=== PATIENT | female | born 1970 | race American Indian/Alaskan Native ===

== ENCOUNTER 2019-05-26 17:55 | Inpatient (IN) | payer OTHER ==
--- NOTE | 2019-05-26 18:20 | Emergency Department Report ---
ED Altered Mental Status HPI - General Chief Complaint: Altered Mental Status Stated Complaint: CONFUSION Time Seen by Provider: 05/26/19 18:17 Source: EMS Mode of arrival: Stretcher Limitations: No Limitations - History of Present Illness Initial Comments: Vision is a 48-year-old female that presents from a local psychiatric facility for confusion. Patient was over at [facility] on a 1013 for suicidal ideations and the patient was noted to be confused just prior to arrival. Patient denies pain. Patient denies any physical complaints. Patient denies dysuria. Patient states she doesn't believe she is confused. MD Complaint: altered mental status, confusion -: Sudden Consistency of Symptoms: constant Associated Symptoms: denies other symptoms. denies: chest pain, cough, diaphoresis, fever/chills, headaches, loss of appetite, malaise, nause a/vomiting, rash, seizure, shortness of breath, syncope, weakness, foul smelling urine, difficulty walking, diarrhea, incontinence - Related Data Allergies Allergy/AdvReac Type Severity Reaction Status Date / Time No Known Allergies Allergy Unverified 05/26/19 18:30 ED Review of Systems ROS: Stated complaint: CONFUSION Other details as noted in HPI Constitutional: denies: chills, fever Eyes: denies: eye pain, eye discharge, vision change ENT: denies: ear pain, throat pain Respiratory: denies: cough, shortness of breath, wheezing Cardiovascular: denies: chest pain, palpitations Endocrine: no symptoms reported Gastrointestinal: denies: abdominal pain, nausea, diarrhea Genitourinary: denies: urgency, dysuria, discharge Musculoskeletal: denies: back pain, joint swelling, arthralgia Skin: denies: rash, lesions Neurological: confusion. denies: headache, weakness, paresthesias Psychiatric: denies: anxiety, depression Hematological/Lymphatic: denies: easy bleeding, easy bruising ED Past Medical Hx - Past Medical History Previous Medical History?: Yes Hx Hypertension: Yes Hx Diabetes: Yes - Surgical History Past Surgical History?: No - Family History Family history: no significant - Social History Smoking Status: Never Smoker Substance Use Type: None ED Physical Exam - General Limitations: No Limitations General appearance: alert, in no apparent distress - Head Head exam: Present: atraumatic, normocephalic - Eye Eye exam: Present: normal appearance, PERRL Pupils: Present: normal accommodation - ENT ENT exam: Present: mucous membranes moist - Neck Neck exam: Present: normal inspection - Respiratory Respiratory exam: Present: normal lung sounds bilaterally. Absent: respiratory distress - Cardiovascular Cardiovascular Exam: Present: regular rate, normal rhythm. Absent: systolic murmur, diastolic murmur, rubs, gallop - GI/Abdominal GI/Abdominal exam: Present: soft, normal bowel sounds - Extremities Exam Extremities exam: Present: normal inspection - Back Exam Back exam: Present: normal inspection - Neurological Exam Neurological exam: Present: alert, altered (patient is oriented 2. Patient is disoriented to time.) - Psychiatric Psychiatric exam: Present: normal affect, normal mood - Skin Skin exam: Present: warm, dry, intact, normal color. Absent: rash - Assessment Assessment Interval: Baseline - Level of Consciousness 1a. Level of Consciousness: alert/keenly responsive - LOC Questions 1b. LOC Questions: answers both correctly - LOC Command 1c. LOC Commands: performs tasks correctly - Best Gaze 2. Best Gaze: normal - Visual 3. Visual: no visual loss - Facial Palsy 4. Facial Palsy: normal symmetrical movement - Motor Arm 5a. Motor Arm Left: no drift 5b. Motor Arm Right: no drift - Motor Leg 6a. Motor Leg Left: no drift 6b. Motor Leg Right: no drift - Limb Ataxia 7. Limb Ataxia: absent - Sensory 8. Sensory: normal - Best Language 9. Best Language: no aphasia - Dysarthria 10. Dysarthria: normal - Extinction and Inattention 11. Extinction/Inattention: no abnormality - Scoring Total Score: 0 Stroke Severity: No Stroke Symptoms ED Course Vital Signs 05/26/19 05/26/19 05/26/19 18:05 18:06 18:13 Temperature 98.3 F Pulse Rate 93 H 94 H Respiratory 18 18 18 Rate Blood Pressure 116/72 Blood Pressure 116/72 [Left] O2 Sat by Pulse 99 99 99 Oximetry 05/26/19 05/26/19 05/26/19 19:31 19:45 20:01 Temperature Pulse Rate 76 95 H 80 Respiratory 13 16 12 Rate Blood Pressure 125/81 121/82 124/80 Blood Pressure [Left] O2 Sat by Pulse 99 99 99 Oximetry 05/26/19 05/26/19 05/26/19 20:15 20:31 20:45 Temperature Pulse Rate 82 85 85 Respiratory 12 11 L 14 Rate Blood Pressure 119/80 124/84 120/77 Blood Pressure [Left] O2 Sat by Pulse 100 97 Oximetry 05/26/19 21:00 Temperature Pulse Rate 85 Respiratory 16 Rate Blood Pressure 107/65 Blood Pressure [Left] O2 Sat by Pulse 95 Oximetry - Reevaluation(s) Reevaluation #1: Patient is still confused. I discussed results with patient. Patient will be admitted to the hospitalist service. 05/26/19 22:05 - Consultations Consultation #1: Hospitalist consultation for admission. Hospitalist to admit patient. 05/26/19 22:05 - Lab Data Result diagrams: 05/26/19 18:26 05/26/19 18:26 Lab Results 05/26/19 05/26/19 05/26/19 Range/Units 18:26 18:26 18:26 WBC 6.6 (4.5-11.0) K/mm3 RBC 3.62 L (3.65-5.03) M/mm3 Hgb 12.0 (10.1-14.3) gm/dl Hct 35.7 (30.3-42.9) % MCV 99 H (79-97) fl MCH 33 H (28-32) pg MCHC 34 (30-34) % RDW 13.6 (13.2-15.2) % Plt Count 248 (140-440) K/mm3 Lymph % (Auto) 46.2 H (13.4-35.0) % Starr % (Auto) 12.2 H (0.0-7.3) % Eos % (Auto) 1.8 (0.0-4.3) % Baso % (Auto) 1.1 (0.0-1.8) % Lymph # 3.0 (1.2-5.4) K/mm3 Starr # 0.8 (0.0-0.8) K/mm3 Eos # 0.1 (0.0-0.4) K/mm3 Baso # 0.1 (0.0-0.1) K/mm3 Seg Neutrophils % 38.7 L (40.0-70.0) % Seg Neutrophils # 2.5 (1.8-7.7) K/mm3 Sodium 139 (137-145) mmol/L Potassium 5.0 (3.6-5.0) mmol/L Chloride 103.2 (98-107) mmol/L Carbon Dioxide 24 (22-30) mmol/L Anion Gap 17 mmol/L BUN 17 (7-17) mg/dL Creatinine 0.7 (0.7-1.2) mg/dL Estimated GFR > 60 ml/min BUN/Creatinine Ratio 24 % Glucose 107 H (65-100) mg/dL Calcium 9.7 (8.4-10.2) mg/dL Total Bilirubin 0.30 (0.1-1.2) mg/dL AST 20 (5-40) units/L ALT 15 (7-56) units/L Alkaline Phosphatase 72 (35-129) units/L Ammonia 37.0 (25-60) umol/L Total Creatine Kinase 44 (30-135) units/L Total Protein 6.8 (6.3-8.2) g/dL Albumin 3.8 L (3.9-5) g/dL Albumin/Globulin Ratio 1.3 % Urine Color (Yellow) Urine Turbidity (Clear) Urine pH (5.0-7.0) Ur Specific [place] (1.003-1.030) Urine Protein (Negative) mg/dL Urine Glucose (UA) (Negative) mg/dL Urine Ketones (Negative) mg/dL Urine Blood (Negative) Urine Nitrite (Negative) Urine Bilirubin (Negative) Urine Urobilinogen (<2.0) mg/dL Ur Leukocyte Esterase (Negative) Urine WBC (Auto) (0.0-6.0) /HPF Urine RBC (Auto) (0.0-6.0) /HPF U Epithel Cells (Auto) (0-13.0) /HPF Urine Bacteria (Auto) (Negative) /HPF Urine Mucus /HPF Salicylates (2.8-20.0) mg/dL Urine Opiates Screen Urine Methadone Screen Acetaminophen (10.0-30.0) ug/mL Ur Barbiturates Screen Ur Phencyclidine Scrn Ur Amphetamines Screen U Benzodiazepines Scrn Urine Cocaine Screen U Marijuana (THC) Screen Drugs of Abuse Note Plasma/Serum Alcohol (0-0.07) % 05/26/19 05/26/19 05/26/19 Range/Units 18:26 18:26 18:26 WBC (4.5-11.0) K/mm3 RBC (3.65-5.03) M/mm3 Hgb (10.1-14.3) gm/dl Hct (30.3-42.9) % MCV (79-97) fl MCH (28-32) pg MCHC (30-34) % RDW (13.2-15.2) % Plt Count (140-440) K/mm3 Lymph % (Auto) (13.4-35.0) % Starr % (Auto) (0.0-7.3) % Eos % (Auto) (0.0-4.3) % Baso % (Auto) (0.0-1.8) % Lymph # (1.2-5.4) K/mm3 Starr # (0.0-0.8) K/mm3 Eos # (0.0-0.4) K/mm3 Baso # (0.0-0.1) K/mm3 Seg Neutrophils % (40.0-70.0) % Seg Neutrophils # (1.8-7.7) K/mm3 Sodium (137-145) mmol/L Potassium (3.6-5.0) mmol/L Chloride (98-107) mmol/L Carbon Dioxide (22-30) mmol/L Anion Gap mmol/L BUN (7-17) mg/dL Creatinine (0.7-1.2) mg/dL Estimated GFR ml/min BUN/Creatinine Ratio % Glucose (65-100) mg/dL Calcium (8.4-10.2) mg/dL Total Bilirubin (0.1-1.2) mg/dL AST (5-40) units/L ALT (7-56) units/L Alkaline Phosphatase (35-129) units/L Ammonia (25-60) umol/L Total Creatine Kinase (30-135) units/L Total Protein (6.3-8.2) g/dL Albumin (3.9-5) g/dL Albumin/Globulin Ratio % Urine Color (Yellow) Urine Turbidity (Clear) Urine pH (5.0-7.0) Ur Specific [place] (1.003-1.030) Urine Protein (Negative) mg/dL Urine Glucose (UA) (Negative) mg/dL Urine Ketones (Negative) mg/dL Urine Blood (Negative) Urine Nitrite (Negative) Urine Bilirubin (Negative) Urine Urobilinogen (<2.0) mg/dL Ur Leukocyte Esterase (Negative) Urine WBC (Auto) (0.0-6.0) /HPF Urine RBC (Auto) (0.0-6.0) /HPF U Epithel Cells (Auto) (0-13.0) /HPF Urine Bacteria (Auto) (Negative) /HPF Urine Mucus /HPF Salicylates < 0.3 L (2.8-20.0) mg/dL Urine Opiates Screen Urine Methadone Screen Acetaminophen < 5.0 L (10.0-30.0) ug/mL Ur Barbiturates Screen Ur Phencyclidine Scrn Ur Amphetamines Screen U Benzodiazepines Scrn Urine Cocaine Screen U Marijuana (THC) Screen Drugs of Abuse Note Plasma/Serum Alcohol < 0.01 (0-0.07) % 05/26/19 05/26/19 Range/Units 18:46 18:46 WBC (4.5-11.0) K/mm3 RBC (3.65-5.03) M/mm3 Hgb (10.1-14.3) gm/dl Hct (30.3-42.9) % MCV (79-97) fl MCH (28-32) pg MCHC (30-34) % RDW (13.2-15.2) % Plt Count (140-440) K/mm3 Lymph % (Auto) (13.4-35.0) % Starr % (Auto) (0.0-7.3) % Eos % (Auto) (0.0-4.3) % Baso % (Auto) (0.0-1.8) % Lymph # (1.2-5.4) K/mm3 Starr # (0.0-0.8) K/mm3 Eos # (0.0-0.4) K/mm3 Baso # (0.0-0.1) K/mm3 Seg Neutrophils % (40.0-70.0) % Seg Neutrophils # (1.8-7.7) K/mm3 Sodium (137-145) mmol/L Potassium (3.6-5.0) mmol/L Chloride (98-107) mmol/L Carbon Dioxide (22-30) mmol/L Anion Gap mmol/L BUN (7-17) mg/dL Creatinine (0.7-1.2) mg/dL Estimated GFR ml/min BUN/Creatinine Ratio % Glucose (65-100) mg/dL Calcium (8.4-10.2) mg/dL Total Bilirubin (0.1-1.2) mg/dL AST (5-40) units/L ALT (7-56) units/L Alkaline Phosphatase (35-129) units/L Ammonia (25-60) umol/L Total Creatine Kinase (30-135) units/L Total Protein (6.3-8.2) g/dL Albumin (3.9-5) g/dL Albumin/Globulin Ratio % Urine Color Yellow (Yellow) Urine Turbidity Slightly-cloudy (Clear) Urine pH 6.0 (5.0-7.0) Ur Specific [place] 1.020 (1.003-1.030) Urine Protein <15 mg/dl (Negative) mg/dL Urine Glucose (UA) Neg (Negative) mg/dL Urine Ketones Neg (Negative) mg/dL Urine Blood Neg (Negative) Urine Nitrite Neg (Negative) Urine Bilirubin Neg (Negative) Urine Urobilinogen < 2.0 (<2.0) mg/dL Ur Leukocyte Esterase Lg (Negative) Urine WBC (Auto) 33.0 H (0.0-6.0) /HPF Urine RBC (Auto) 30.0 (0.0-6.0) /HPF U Epithel Cells (Auto) 12.0 (0-13.0) /HPF Urine Bacteria (Auto) 1+ (Negative) /HPF Urine Mucus Few /HPF Salicylates (2.8-20.0) mg/dL Urine Opiates Screen Presumptive negative Urine Methadone Screen Presumptive negative Acetaminophen (10.0-30.0) ug/mL Ur Barbiturates Screen Presumptive negative Ur Phencyclidine Scrn Presumptive negative Ur Amphetamines Screen Presumptive negative U Benzodiazepines Scrn Presumptive negative Urine Cocaine Screen Presumptive negative U Marijuana (THC) Screen Presumptive negative Drugs of Abuse Note Disclamer Plasma/Serum Alcohol (0-0.07) % - EKG Data -: EKG Interpreted by Ak EKG shows normal: sinus rhythm, axis, intervals, QRS complexes, ST-T waves Rate: normal - Radiology Data Radiology results: report reviewed NONENHANCED CT SCAN OF THE BRAIN: INDICATION: Altered Mental Status. TECHNIQUE: Routine CT head without contrast. Sagittal and coronal reformatted images were obtained. All CT scans at this location are performed using CT dose reduction for ALARA by means of automated exposure control. COMPARISON: None. FINDINGS: BRAIN / INTRACRANIAL CONTENTS: No acute hemorrhage, mass effect, midline shift, hydrocephalus, or acute, large territorial infarct. Extracerebral space is seen bifrontally symmetrically with prominent interhemispheric fissure. This is due to involution. Extra cerebellar space is also seen bilaterally symmetrically. No significant white matter abnormality. CRANIOCERVICAL JUNCTION: Mild tonsillar ectopia is seen. Cervicomedullary junction is not compromised. ORBITS: Bony remodeling is seen along the medial wall of the left orbit. Though the this appears to be from old healed trauma, this could also be congenital. SINUSES / MASTOIDS: No significant abnormality of the visualized paranasal sinuses or mastoid air cells. ADDITIONAL FINDINGS: None. IMPRESSION: I do not see an acute parenchymal lesion in the brain. Critical Care Time: Yes Critical care attestation.: If time is entered above; I have spent that time in minutes in the direct care of this critically ill patient, excluding procedure time. Critical Care Time: 35 minutes ED Disposition Clinical Impression: Encephalopathy acute, Confusion Altered mental state Qualifiers: Altered mental status type: unspecified Qualified Code(s): R41.82 - Altered men alexandro status, unspecified UTI (urinary tract infection) Qualifiers: Urinary tract infection type: acute cystitis Hematuria presence: with hematuria Qualified Code(s): N30.01 - Acute cystitis with hematuria Disposition: OP ADMIT IP TO THIS HOSP Is pt being admited?: Yes Does the pt Need Aspirin: No Condition: Critical Time of Disposition: 22:07
[2019-05-26 18:42] LABS: Basophils # (Auto) 0.1 K/mm3 (0.0-0.1); Basophils % (Auto) 1.1 % (0.0-1.8); Eosinophils # (Auto) 0.1 K/mm3 (0.0-0.4); Eosinophils % (Auto) 1.8 % (0.0-4.3); Hematocrit 35.7 % (30.3-42.9); Lymphocytes % (Auto) 46.2 % (13.4-35.0); Mean Corpuscular HGB Conc 34 % (30-34); Mean Corpuscular Volume 99 fl (79-97); Monocytes # (Auto) 0.8 K/mm3 (0.0-0.8); Monocytes % (Auto) 12.2 % (0.0-7.3); Platelet Count 248 K/mm3 (140-440); Red Blood Count 3.62 M/mm3 (3.65-5.03); Red Cell Distribution Width 13.6 % (13.2-15.2)
[2019-05-26 19:28] LABS: Bacteria,Urine 1+ /HPF (Negative); Bilirubin,Urine NEG (Negative); Blood,Urine NEG (Negative); Color,Urine Yellow (Yellow); Mucus,Urine FEW /HPF; Protein,Urine <15 mg/dL mg/dL (Negative); Urobilinogen,Urine < 2.0 mg/dL (<2.0)
[2019-05-26 19:44] LABS: Amphetamine Screen,Urine PRESUMPTIVE NEGATIVE; Benzodiazepines Screen,Urine PRESUMPTIVE NEGATIVE; Cannabinoid Screen,Urine PRESUMPTIVE NEGATIVE; Cocaine Screen,Urine PRESUMPTIVE NEGATIVE; Methadone Screen,Urine PRESUMPTIVE NEGATIVE; Opiate Screen,Urine PRESUMPTIVE NEGATIVE
[2019-05-26 19:49] LABS: Alanine Aminotransferase 15 units/L (7-56); Albumin 3.8 g/dL (3.9-5); BUN/Creatinine Ratio 24; Blood Urea Nitrogen 17 mg/dL (7-17); Calcium 9.7 mg/dL (8.4-10.2); Hemolysis Index 19
--- NOTE | 2019-05-26 21:58 | Cat Scan Report ---
NONENHANCED CT SCAN OF THE BRAIN: INDICATION: Altered Mental Status. TECHNIQUE: Routine CT head without contrast. Sagittal and coronal reformatted images were obtained. A ll CT scans at this location are performed using CT dose reduction for ALARA by means of automated ex posure control. COMPARISON: None. FINDINGS: BRAIN / INTRACRANIAL CONTENTS: No acute hemorrhage, mass effect, midline shift, hydrocephalus, or acu te, large territorial infarct. Extracerebral space is seen bifrontally symmetrically with prominent i nterhemispheric fissure. This is due to involution. Extra cerebellar space is also seen bilaterally s ymmetrically. No significant white matter abnormality. CRANIOCERVICAL JUNCTION: Mild tonsillar ectopia is seen. Cervicomedullary junction is not compromised . ORBITS: Bony remodeling is seen along the medial wall of the left orbit. Though the this appears to b e from old healed trauma, this could also be congenital. SINUSES / MASTOIDS: No significant abnormality of the visualized paranasal sinuses or mastoid air millie ls. ADDITIONAL FINDINGS: None. IMPRESSION: I do not see an acute parenchymal lesion in the brain. Signer Name: Evangelista Keller MD Signed: 05/26/2019 9:53 PM Workstation Name: [id number]
[2019-05-26] MEDS ORDERED: MAXIPIME/NS 2 GM/100 ML 2 GM/100 ML BAG IV ONE (22:04)
[2019-05-26] MEDS ORDERED: NACL 0.9% 1000 ML 1,000 ML IV ONE (22:05)
[2019-05-26] MEDS ORDERED: SODIUM CHLORIDE FLUSH SYRINGE 10 ML IV PRN (23:31)
[2019-05-26] MEDS ORDERED: TYLENOL PO PRN (23:31)
[2019-05-26] MEDS ORDERED: MILK OF MAGNESIA PO PRN (23:31)
[2019-05-26] MEDS ORDERED: ZOFRAN IV PRN (23:31)
[2019-05-27] MEDS ORDERED: PEPCID IV ONE (00:07)
[2019-05-27] MEDS: PEPCID IV SCH ×3 (00:09→22:28)
--- NOTE | 2019-05-27 00:41 | History and Physical Report ---
<ANGELICA PRETTY - Last Filed: 05/27/19 00:29> History of Present Illness Date of examination: 05/27/19 Date of admission: 05/26/19 23:01 Chief complaint: AMS, confusion History of present illness: Pt is a 48-year-old female with PMHx of HTN, Depression who was brought to the ER from a mental facility for c/o confusion. Patient was admitted at [place] (psych facility) for depression and suicidal ideations, she was on 1013. Pt was sent to the [facility] ER for confusion and changed in mental status. In the ER, pt had a UA that was positive for UTI. Pt was A&O x 3, she was noted to have some confusion with the time of the day, she otherwise able to answer questions appropriately, she denies any back pain, denies dysuria, denies pain in micturation, denies fever, denies chills. A CT scan of the brain was negative for any acute lesions, she was started on antibiotic an admitted for further evaluation and treatment. Past History Past Medical History: diabetes, hypertension, other (depression) Past Surgical History: No surgical history Social history: no significant social history Family history: no significant family history Medications and Allergies Allergies Allergy/AdvReac Type Severity Reaction Status Date / Time No Known Allergies Allergy Unverified 05/26/19 18:30 Home Medications Medication Instructions Recorded Confirmed Last Taken Type Amlodipine Besylate [Norvasc] 5 mg PO DAILY 05/26/19 05/26/19 Unknown History Folic Acid [Folvite] 1 tab PO DAILY 05/26/19 05/26/19 Unknown History Active Meds: Active Medications Acetaminophen (Tylenol) 650 mg PO Q4H PRN PRN Reason: Pain MILD(1-3)/Fever >100.5/VILA Enoxaparin Sodium (Lovenox) 40 mg SUB-Q QDAY [facility] Famotidine (Pepcid) 20 mg IV BID [facility] Last Admin: 05/27/19 00:09 Dose: 20 mg Documented by: Sodium Chloride (Nacl 0.9% 1000 Ml) 1,000 mls @ 100 mls/hr IV DIRECT [facility] Magnesium Hydroxide (Milk Of Magnesia) 30 ml PO Q4H PRN PRN Reason: Constipation Ondansetron HCl (Zofran) 4 mg IV Q8H PRN PRN Reason: Nausea And Vomiting Sodium Chloride (Sodium Chloride Flush Syringe 10 Ml) 10 ml IV BID [facility] Sodium Chloride (Sodium Chloride Flush Syringe 10 Ml) 10 ml IV PRN PRN PRN Reason: LINE FLUSH Review of Systems Neurological: confusion Exam - Constitutional Vitals: Temp Pulse Resp BP Pulse Ox 98.1 F 91 H 11 L 126/85 100 05/26/19 23:05 05/26/19 23:31 05/26/19 23:31 05/26/19 23:31 05/26/19 23:31 General appearance: Present: no acute distress - EENT Eyes: Present: EOM intact ENT: hearing intact - Neck Neck: Present: supple - Respiratory Respiratory effort: normal Respiratory: bilateral: CTA - Cardiovascular Rhythm: regular Heart Sounds: Present: S1 & S2 - Extremities Extremities: no ischemia, No edema Peripheral Pulses: within normal limits - Abdominal General gastrointestinal: Present: non-tender, non-distended Female genitourinary: Present: deferred - Rectal Rectal Exam: deferred - Integumentary Integumentary: Present: warm, dry - Musculoskeletal Musculoskeletal: strength equal bilaterally - Psychiatric Psychiatric: cooperative - Neurologic Neurologic: moves all extremities Results - Labs CBC & Chem 7: 05/26/19 18:26 05/26/19 18:26 Labs: Laboratory Last Values WBC 6.6 K/mm3 (4.5-11.0) 05/26/19 18:26 RBC 3.62 M/mm3 (3.65-5.03) L 05/26/19 18:26 Hgb 12.0 gm/dl (10.1-14.3) 05/26/19 18:26 Hct 35.7 % (30.3-42.9) 05/26/19 18:26 MCV 99 fl (79-97) H 05/26/19 18:26 MCH 33 pg (28-32) H 05/26/19 18:26 MCHC 34 % (30-34) 05/26/19 18:26 RDW 13.6 % (13.2-15.2) 05/26/19 18:26 Plt Count 248 K/mm3 (140-440) 05/26/19 18:26 Lymph % (Auto) 46.2 % (13.4-35.0) H 05/26/19 18:26 [place] % (Auto) 12.2 % (0.0-7.3) H 05/26/19 18:26 Eos % (Auto) 1.8 % (0.0-4.3) 05/26/19 18:26 Baso % (Auto) 1.1 % (0.0-1.8) 05/26/19 18:26 Lymph # 3.0 K/mm3 (1.2-5.4) 05/26/19 18:26 [place] # 0.8 K/mm3 (0.0-0.8) 05/26/19 18:26 Eos # 0.1 K/mm3 (0.0-0.4) 05/26/19 18:26 Baso # 0.1 K/mm3 (0.0-0.1) 05/26/19 18:26 Seg Neutrophils % 38.7 % (40.0-70.0) L 05/26/19 18: Seg Neutrophils # 2.5 K/mm3 (1.8-7.7) 05/26/19 18:26 Sodium 139 mmol/L (137-145) 05/26/19 18:26 Potassium 5.0 mmol/L (3.6-5.0) 05/26/19 18:26 Chloride 103.2 mmol/L (98-107) 05/26/19 18:26 Carbon Dioxide 24 mmol/L (22-30) 05/26/19 18:26 17 mmol/L 05/26/19 18:26 BUN 17 mg/dL (7-17) 05/26/19 18:26 0.7 mg/dL (0.7-1.2) 05/26/19 18:26 Estimated GFR > 60 ml/min 05/26/19 18:26 24 % 05/26/19 18:26 Glucose 107 mg/dL (65-100) H 05/26/19 18:26 Calcium 9.7 mg/dL (8.4-10.2) 05/26/19 18:26 0.30 mg/dL (0.1-1.2) 05/26/19 18:26 AST 20 units/L (5-40) 05/26/19 18:26 ALT 15 units/L (7-56) 05/26/19 18:26 72 units/L (35-129) 05/26/19 18:26 37.0 umol/L (25-60) 05/26/19 18:26 44 units/L (30-135) 05/26/19 18:26 6.8 g/dL (6.3-8.2) 05/26/19 18:26 3.8 g/dL (3.9-5) L 05/26/19 18:26 1.3 % 05/26/19 18:26 Yellow (Yellow) 05/26/19 18:46 Slightly-cloudy (Clear) 05/26/19 18:46 6.0 (5.0-7.0) 05/26/19 18:46 Ur Specific [place] 1.020 (1.003-1.030) 05/26/19 18:46 <15 mg/dl mg/dL (Negative) 05/26/19 18:46 Neg mg/dL (Negative) 05/26/19 18:46 Neg mg/dL (Negative) 05/26/19 18:46 Neg (Negative) 05/26/19 18:46 Neg (Negative) 05/26/19 18:46 Neg (Negative) 05/26/19 18:46 < 2.0 mg/dL (<2.0) 05/26/19 18:46 Ur Leukocyte Esterase Lg (Negative) 05/26/19 18:46 33.0 /HPF (0.0-6.0) H 05/26/19 18:46 30.0 /HPF (0.0-6.0) 05/26/19 18:46 U Epithel Cells (Auto) 12.0 /HPF (0-13.0) 05/26/19 18:46 1+ /HPF (Negative) 05/26/19 18:46 Few /HPF 05/26/19 18:46 Salicylates < 0.3 mg/dL (2.8-20.0) L 05/26/19 18:26 Presumptive negative 05/26/19 18:46 Presumptive negative 05/26/19 18:46 Acetaminophen < 5.0 ug/mL (10.0-30.0) L 05/26/19 18:26 Ur Barbiturates Screen Presumptive negative 05/26/19 18:46 Ur Phencyclidine Scrn Presumptive negative 08/23/19 18:46 Ur Amphetamines Screen Presumptive negative 05/26/19 18:46 U Benzodiazepines Scrn Presumptive negative 05/26/19 18:46 Presumptive negative 05/26/19 18:46 U Marijuana (THC) Screen Presumptive negative 05/26/19 18:46 Disclamer 05/26/19 18:46 Plasma/Serum Alcohol < 0.01 % (0-0.07) 05/26/19 18:26 Assessment and Plan Assessment and plan: 1. AMS/Confusion (possibly due to delirium) 2. Acute UTI 3. H/o Depression with suicidal Isolation 4. DM thpe 2 (Controlled) 5. HTM (BP stable) Plan: Admit to med/surg IVF for hydration Continue IV antibiotic Resume home meds 1013 for completed 1-1 observation for h/o suicidal ideation Regular insulin per sliding scale DVT prophylaxis with Lovenox Advance Directives: Yes VTE prophylaxis?: Chemical Plan of care discussed with patient/family: Yes <BARRIE RAMIREZ - Last Filed: 05/27/19 04:13> History of Present Illness Date of admission: 05/26/19 23:01 Medications and Allergies Active Meds: Active Medications Acetaminophen (Tylenol) 650 mg PO Q4H PRN PRN Reason: Pain MILD(1-3)/Fever >100.5/VILA Dextrose (D50w (25gm) Syringe) 50 ml IV PRN PRN PRN Reason: Hypoglycemia Enoxaparin Sodium (Lovenox) 40 mg SUB-Q QDAY [facility] Famotidine (Pepcid) 20 mg IV BID [facility] Last Admin: 05/27/19 00:09 Dose: 20 mg Documented by: Sodium Chloride (Nacl 0.9% 1000 Ml) 1,000 mls @ 100 mls/hr IV DIRECT [facility] Last Admin: 05/27/19 02:00 Dose: 100 mls/hr Documented by: Ceftriaxone Sodium (Rocephin/Ns 1 Gm/50 Ml) 1 gm in 50 mls @ 100 mls/hr IV Q24HR [facility]; Protocol Insulin Glargine (Lantus) 10 units SUB-Q QHS [facility] Insulin Human Lispro (Humalog) 0 unit SUB-Q ACHS [facility]; Protocol Magnesium Hydroxide (Milk Of Magnesia) 30 ml PO Q4H PRN PRN Reason: Constipation Ondansetron HCl (Zofran) 4 mg IV Q8H PRN PRN Reason: Nausea And Vomiting Sodium Chloride (Sodium Chloride Flush Syringe 10 Ml) 10 ml IV BID [facility] Sodium Chloride (Sodium Chloride Flush Syringe 10 Ml) 10 ml IV PRN PRN PRN Reason: LINE FLUSH Last Admin: 05/27/19 02:01 Dose: 10 ml Documented by: Exam - Constitutional Vitals: Temp Pulse Resp BP Pulse Ox 97.7 F 75 18 142/92 99 05/27/19 01:45 05/27/19 01:45 05/27/19 01:45 05/27/19 01:45 05/27/19 01:45 Results - Labs CBC & Chem 7: 05/26/19 18:26 05/26/19 18:26 Labs: Laboratory Last Values WBC 6.6 K/mm3 (4.5-11.0) 05/26/19 18:26 RBC 3.62 M/mm3 (3.65-5.03) L 05/26/19 18:26 Hgb 12.0 gm/dl (10.1-14.3) 05/26/19 18:26 Hct 35.7 % (30.3-42.9) 05/26/19 18:26 MCV 99 fl (79-97) H 05/26/19 18:26 MCH 33 pg (28-32) H 05/26/19 18:26 MCHC 34 % (30-34) 05/26/19 18:26 RDW 13.6 % (13.2-15.2) 05/26/19 18:26 Plt Count 248 K/mm3 (140-440) 05/26/19 18:26 Lymph % (Auto) 46.2 % (13.4-35.0) H 05/26/19 18:26 [place] % (Auto) 12.2 % (0.0-7.3) H 05/26/19 18:26 Eos % (Auto) 1.8 % (0.0-4.3) 05/26/19 18:26 Baso % (Auto) 1.1 % (0.0-1.8) 05/26/19 18:26 Lymph # 3.0 K/mm3 (1.2-5.4) 05/26/19 18:26 [place] # 0.8 K/mm3 (0.0-0.8) 05/26/19 18:26 Eos # 0.1 K/mm3 (0.0-0.4) 05/26/19 18:26 Baso # 0.1 K/mm3 (0.0-0.1) 05/26/19 18:26 Seg Neutrophils % 38.7 % (40.0-70.0) L 05/26/19 18:26 Seg Neutrophils # 2.5 K/mm3 (1.8-7.7) 05/26/19 18:26 Sodium 139 mmol/L (137-145) 05/26/19 18:26 Potassium 5.0 mmol/L (3.6-5.0) 05/26/19 18:26 Chloride 103.2 mmol/L (98-107) 05/26/19 18:26 Carbon Dioxide 24 mmol/L (22-30) 05/26/19 18:26 17 mmol/L 05/26/19 18:26 BUN 17 mg/dL (7-17) 05/26/19 18:26 0.7 mg/dL (0.7-1.2) 05/26/19 18:26 Estimated GFR > 60 ml/min 05/26/19 18:26 24 % 05/26/19 18:26 Glucose 107 mg/dL (65-100) H 05/26/19 18:26 Calcium 9.7 mg/dL (8.4-10.2) 05/26/19 18:26 0.30 mg/dL (0.1-1.2) 05/26/19 18:26 AST 20 units/L (5-40) 05/26/19 18:26 ALT 15 units/L (7-56) 05/26/19 18:26 72 units/L (35-129) 05/26/19 18:26 37.0 umol/L (25-60) 05/26/19 18:26 44 units/L (30-135) 05/26/19 18:26 6.8 g/dL (6.3-8.2) 05/26/19 18:26 3.8 g/dL (3.9-5) L 05/26/19 18:26 1.3 % 05/26/19 18:26 Yellow (Yellow) 05/26/19 18:46 Slightly-cloudy (Clear) 05/26/19 18:46 6.0 (5.0-7.0) 05/26/19 18:46 Ur Specific [place] 1.020 (1.003-1.030) 05/26/19 18:46 <15 mg/dl mg/dL (Negative) 05/26/19 18:46 Neg mg/dL (Negative) 05/26/19 18:46 Neg mg/dL (Negative) 05/26/19 18:46 Neg (Negative) 05/26/19 18:46 Neg (Negative) 05/26/19 18:46 Neg (Negative) 05/26/19 18:46 < 2.0 mg/dL (<2.0) 05/26/19 18:46 Ur Leukocyte Esterase Lg (Negative) 05/26/19 18:46 33.0 /HPF (0.0-6.0) H 05/26/19 18:46 30.0 /HPF (0.0-6.0) 05/26/19 18:46 U Epithel Cells (Auto) 12.0 /HPF (0-13.0) 05/26/19 18:46 1+ /HPF (Negative) 05/26/19 18:46 Few /HPF 05/26/19 18:46 Salicylates < 0.3 mg/dL (2.8-20.0) L 05/26/19 18:26 Presumptive negative 05/26/19 18:46 Presumptive negative 05/26/19 18:46 Acetaminophen < 5.0 ug/mL (10.0-30.0) L 05/26/19 18:26 Ur Barbiturates Screen Presumptive negative 05/26/19 18:46 Ur Phencyclidine Scrn Presumptive negative 05/26/19 18:46 Ur Amphetamines Screen Presumptive negative 05/26/19 18:46 U Benzodiazepines Scrn Presumptive negative 05/26/19 18:46 Presumptive negative 05/26/19 18:46 U Marijuana (THC) Screen Presumptive negative 05/26/19 18:46 Disclamer 05/26/19 18:46 Plasma/Serum Alcohol < 0.01 % (0-0.07) 05/26/19 18:26 Assessment and Plan Assessment and plan: 48-year-old lady with a history of depression, hypertension, diabetes was sent to the emergency room for evaluation for confusion, found to have a urinary tract infection. She is on 1812 for suicide ideation,agree with plan as stated above
[2019-05-27] MEDS ORDERED: D50W (25GM) Syringe IV PRN (01:03)
[2019-05-27] MEDS: NACL 0.9% 1000 ML 1,000 ML IV SCH (02:00)
[2019-05-27 07:15] LABS: Hematocrit 34.4 % (30.3-42.9); Hemoglobin 11.5 gm/dl (10.1-14.3); Mean Corpuscular HGB Conc 33 % (30-34); Mean Corpuscular Volume 98 fl (79-97); Platelet Count 232 K/mm3 (140-440); Red Cell Distribution Width 13.6 % (13.2-15.2)
[2019-05-27 07:41] LABS: BUN/Creatinine Ratio 22; Blood Urea Nitrogen 11 mg/dL (7-17); Hemolysis Index 3
[2019-05-27] MEDS: HumaLOG SUB-Q SCH ×4 (08:20→21:57)
[2019-05-27] MEDS: LOVENOX SUB-Q SCH (10:37)
[2019-05-27] MEDS: ROCEPHIN/NS 1 GM/50 ML 1 GM/50 ML BAG IV SCH (10:37)
[2019-05-27 10:38] LABS: Total Cells Counted 100
[2019-05-27] MEDS: SODIUM CHLORIDE FLUSH SYRINGE 10 ML IV SCH ×2 (10:38→22:28)
[2019-05-27 10:39] LABS: Anisocytosis 1+; Basophils % (Manual) 0 % (0.0-1.8); Eosinophils % (Manual) 0 % (0.0-4.3)
--- NOTE | 2019-05-27 13:50 | Event Note ---
Date: 05/27/19 Patient reevaluated On 1013 for suicidal ideation UTI AMS Stable
[2019-05-27] MEDS: ATIVAN IV PRN ×2 (16:19→21:46)
[2019-05-27] MEDS: HABITROL TD SCH ×2 (16:21→18:17)
[2019-05-27] MEDS ORDERED: GEODON IM ONE ×2 (18:00→22:20)
[2019-05-27] MEDS ORDERED: LANTUS SUB-Q SCH (22:00)
[2019-05-28] MEDS: NACL 0.9% 1000 ML 1,000 ML IV SCH ×4 (00:38→20:11)
[2019-05-28] MEDS: ATIVAN IV PRN ×4 (07:14→20:10)
[2019-05-28] MEDS: HumaLOG SUB-Q SCH ×4 (08:04→22:59)
[2019-05-28] MEDS: ROCEPHIN/NS 1 GM/50 ML 1 GM/50 ML BAG IV SCH (09:45)
[2019-05-28] MEDS: PEPCID IV SCH ×2 (09:46→22:59)
[2019-05-28] MEDS: HABITROL TD SCH (09:46)
[2019-05-28] MEDS: LOVENOX SUB-Q SCH (09:46)
[2019-05-28] MEDS: SODIUM CHLORIDE FLUSH SYRINGE 10 ML IV SCH ×2 (09:48→22:59)
--- NOTE | 2019-05-28 11:30 | Progress Note ---
Assessment and Plan Assessment and plan: Pt is a 48-year-old female with PMHx of HTN, Depression who was brought to the ER from a mental facility for c/o confusion. Patient was admitted at [place] (psych facility) for depression and suicidal ideations, she was on 1013. Pt was sent to the [facility] ER for confusion and changed in mental status. In the ER, pt had a UA that was positive for UTI. Pt was A&O x 3, she was noted to have some confusion with the time of the day, Past History Past Medical History: diabetes, hypertension, other (depression) CTH neg UA has 33 wbc, UDS neg, other labs wnl SI cont 1013, MH consult UTI cont abx, fup abx Acute metabolic encephalopathy likely due to UTI, improving dvt ppx- lovenox History Interval history: per nursing she has been confused, attempting to leave the floor no cp, no vomiting, no sob, no fever, no seizures Hospitalist Physical - Physical exam Narrative exam: General.: Appears well, no distress, nontoxic HEENT: Moist mucous membranes, extraocular muscles intact, no lymphadenopathy Neck: supple Cardiac: S1-S2 heard Lungs: clear to auscultation bilaterally Abdomen: soft , nontender, nondistended, bowel sounds positive Extremities: no edema clubbing or cyanosis Skin: no rash or lesions Neurologic: no gross focal deficits, confused, oriented to person and year, not to place and not to month or day Psych: calm, and cooperative - Constitutional Vitals: Temp Pulse Resp BP Pulse Ox 97.8 F 89 18 146/90 98 05/28/19 11:27 05/28/19 11:27 05/28/19 11:27 05/28/19 11:27 05/27/19 23:56 General appearance: Present: no acute distress Results - Labs CBC & Chem 7: 05/27/19 06:37 05/27/19 06:37 Labs: Laboratory Last Values WBC 4.8 K/mm3 (4.5-11.0) 05/27/19 06:37 RBC 3.50 M/mm3 (3.65-5.03) L 05/27/19 06:37 Hgb 11.5 gm/dl (10.1-14.3) 05/27/19 06:37 Hct 34.4 % (30.3-42.9) 05/27/19 06:37 MCV 98 fl (79-97) H 05/27/19 06:37 MCH 33 pg (28-32) H 05/27/19 06:37 MCHC 33 % (30-34) 05/27/19 06:37 RDW 13.6 % (13.2-15.2) 05/27/19 06:37 Plt Count 232 K/mm3 (140-440) 05/27/19 06:37 Lymph % (Auto) 46.2 % (13.4-35.0) H 05/26/19 18:26 [place] % (Auto) 12.2 % (0.0-7.3) H 05/26/19 18:26 Eos % (Auto) 1.8 % (0.0-4.3) 05/26/19 18:26 Baso % (Auto) 1.1 % (0.0-1.8) 05/26/19 18: Lymph # 3.0 K/mm3 (1.2-5.4) 05/26/19 18: [place] # 0.8 K/mm3 (0.0-0.8) 05/26/19 18:26 Eos # 0.1 K/mm3 (0.0-0.4) 05/26/19 18:26 Baso # 0.1 K/mm3 (0.0-0.1) 05/26/19 18:26 Add Manual Diff Complete 05/27/19 06:37 Total Counted 100 05/27/19 06:37 Seg Neutrophils % Bullet Swaging Machine Adjuster 05/27/19 06:37 Seg Neuts % (Manual) 42.0 % (40.0-70.0) 05/27/19 06:37 1.0 % 05/27/19 06:37 44.0 % (13.4-35.0) H 05/27/19 06:37 Reactive Lymphs % (Man) 0 % 05/27/19 06:37 13.0 % (0.0-7.3) H 05/27/19 06:37 0 % (0.0-4.3) 05/27/19 06:37 0 % (0.0-1.8) 05/27/19 06:37 0 % 05/27/19 06:37 0 % 05/27/19 06:37 0 % 05/27/19 06:37 0 % 05/27/19 06:37 Nucleated RBC % Not Reportable 05/27/19 06:37 Seg Neutrophils # 2.5 K/mm3 (1.8-7.7) 05/26/19 18:26 Seg Neutrophils # Man 2.0 K/mm3 (1.8-7.7) 05/27/19 06:37 Band Neutrophils # 0.0 K/mm3 05/27/19 06:37 2.1 K/mm3 (1.2-5.4) 05/27/19 06:37 Abs React Lymphs (Man) 0.0 K/mm3 05/27/19 06:37 0.6 K/mm3 (0.0-0.8) 05/27/19 06:37 0.0 K/mm3 (0.0-0.4) 05/27/19 06:37 0.0 K/mm3 (0.0-0.1) 05/27/19 06:37 0.0 K/mm3 05/27/19 06:37 0.0 K/mm3 05/27/19 06:37 0.0 K/mm3 05/27/19 06:37 Blast Cells # 0.0 K/mm3 05/27/19 06:37 WBC Morphology Not Reportable 05/27/19 06:37 Hypersegmented Neuts Not Reportable 05/27/19 06:37 Hyposegmented Neuts Not Reportable 05/27/19 06:37 Hypogranular Neuts Not Reportable 05/27/19 06:37 Not Reportable 05/27/19 06:37 Not Reportable 05/27/19 06:37 Not Reportable 05/27/19 06:37 Not Reportable 05/27/19 06:37 Not Reportable 05/27/19 06:37 Not Reportable 05/27/19 06:37 Not Reportable 05/27/19 06:37 Not Reportable 05/27/19 06:37 Plt Clumps, EDTA Not Reportable 05/27/19 06:37 Not Reportable 05/27/19 06:37 Not Reportable 05/27/19 06:37 Not Reportable 05/27/19 06:37 Plt Morphology Comment Not Reportable 05/27/19 06:37 RBC Morphology Not Reportable 05/27/19 06:37 Dimorphic RBCs Not Reportable 05/27/19 06:37 Not Reportable 05/27/19 06:37 Not Reportable 05/27/19 06:37 Not Reportable 05/27/19 06:37 1+ 05/27/19 06:37 Not Reportable 05/27/19 06:37 Not Reportable 05/27/19 06:37 Not Reportable 05/27/19 06:37 Not Reportable 05/27/19 06:37 Not Reportable 05/27/19 06:37 Not Reportable 05/27/19 06:37 Not Reportable 05/27/19 06:37 Not Reportable 05/27/19 06:37 Not Reportable 05/27/19 06:37 Not Reportable 05/27/19 06:37 Not Reportable 05/27/19 06:37 Not Reportable 05/27/19 06:37 Not Reportable 05/27/19 06:37 Not Reportable 05/27/19 06:37 Not Reportable 05/27/19 06:37 Acanthocytes (Spur) Not Reportable 05/27/19 06:37 Rouleaux Not Reportable 05/27/19 06:37 Not Reportable 05/27/19 06:37 Not Reportable 05/27/19 06:37 Not Reportable 05/27/19 06:37 Not Reportable 05/27/19 06:37 Hem Pathologist Commnt No 05/27/19 06:37 Sodium 141 mmol/L (137-145) 05/27/19 06:37 Potassium 3.9 mmol/L (3.6-5.0) D 05/27/19 06:37 Chloride 107.0 mmol/L (98-107) 05/27/19 06:37 Carbon Dioxide 22 mmol/L (22-30) 05/27/19 06:37 16 mmol/L 05/27/19 06:37 BUN 11 mg/dL (7-17) 05/27/19 06:37 0.5 mg/dL (0.7-1.2) L 05/27/19 06:37 Estimated GFR > 60 ml/min 05/27/19 06:37 22 % 05/27/19 06:37 Glucose 105 mg/dL (65-100) H 05/27/19 06:37 POC Glucose 90 (70-105) 05/28/19 07:35 Calcium 9.0 mg/dL (8.4-10.2) 05/27/19 06:37 0.30 mg/dL (0.1-1.2) 05/26/19 18:26 AST 20 units/L (5-40) 05/26/19 18:26 ALT 15 units/L (7-56) 05/26/19 18:26 72 units/L (35-129) 05/26/19 18:26 37.0 umol/L (25-60) 05/26/19 18:26 44 units/L (30-135) 05/26/19 18:26 6.8 g/dL (6.3-8.2) 05/26/19 18:26 3.8 g/dL (3.9-5) L 05/26/19 18:26 1.3 % 05/26/19 18:26 Yellow (Yellow) 05/26/19 18:46 Slightly-cloudy (Clear) 05/26/19 18:46 6.0 (5.0-7.0) 05/26/19 18:46 Ur Specific [place] 1.020 (1.003-1.030) 05/26/19 18:46 <15 mg/dl mg/dL (Negative) 05/26/19 18:46 Neg mg/dL (Negative) 05/26/19 18:46 Neg mg/dL (Negative) 05/26/19 18:46 Neg (Negative) 05/26/19 18:46 Neg (Negative) 05/26/19 18:46 Neg (Negative) 05/26/19 18:46 < 2.0 mg/dL (<2.0) 05/26/19 18:46 Ur Leukocyte Esterase Lg (Negative) 05/26/19 18:46 33.0 /HPF (0.0-6.0) H 05/26/19 18:46 30.0 /HPF (0.0-6.0) 05/26/19 18:46 U Epithel Cells (Auto) 12.0 /HPF (0-13.0) 05/26/19 18:46 1+ /HPF (Negative) 05/26/19 18:46 Few /HPF 05/26/19 18:46 Salicylates < 0.3 mg/dL (2.8-20.0) L 05/26/19 18:26 Presumptive negative 05/26/19 18:46 Presumptive negative 05/26/19 18:46 Acetaminophen < 5.0 ug/mL (10.0-30.0) L 05/26/19 18:26 Ur Barbiturates Screen Presumptive negative 05/26/19 18:46 Ur Phencyclidine Scrn Presumptive negative 05/26/19 18:46 Ur Amphetamines Screen Presumptive negative 05/26/19 18:46 U Benzodiazepines Scrn Presumptive negative 05/26/19 18:46 Presumptive negative 05/26/19 18:46 U Marijuana (THC) Screen Presumptive negative 05/26/19 18:46 Disclamer 05/26/19 18:46 Plasma/Serum Alcohol < 0.01 % (0-0.07) 05/26/19 18:26 Active Medications - Current Medications Current Medications: Generic Name Dose Route Start Last Admin Trade Name Freq PRN Reason Stop Dose Admin Acetaminophen 650 mg 05/26/19 23:31 Tylenol PO Q4H PRN Pain MILD(1-3)/Fever >100.5/VILA Dextrose 50 ml 05/27/19 01:03 D50w (25gm) Syringe IV PRN PRN Hypoglycemia Enoxaparin Sodium 40 mg 05/27/19 10:00 05/28/19 09:46 Lovenox SUB-Q 40 mg QDAY [facility] Administration Famotidine 20 mg 05/26/19 23:45 05/28/19 09:46 Pepcid IV 20 mg BID [facility] Administration Sodium Chloride 1,000 mls @ 100 mls/hr 05/26/19 23:45 05/28/19 09:47 Nacl 0.9% 1000 Ml IV 100 mls/hr DIRECT [facility] Administration Ceftriaxone Sodium 1 gm in 50 mls @ 100 mls/hr 05/27/19 10:00 05/28/19 09:45 Rocephin/Ns 1 Gm/50 Ml IV 100 mls/hr Q24HR [facility] Administration Protocol Insulin Glargine 10 units 05/27/19 22:00 05/27/19 21:56 Lantus SUB-Q Not Given QHS [facility] Insulin Human Lispro 0 unit 05/27/19 07:30 05/28/19 08:04 Humalog SUB-Q Not Given ACHS [facility] Protocol Lorazepam 1 mg 05/27/19 15:58 05/28/19 11:18 Ativan IV 1 mg Q4H PRN Administration Agitation Magnesium Hydroxide 30 ml 05/26/19 23:31 Milk Of Magnesia PO Q4H PRN Constipation Nicotine 14 mg 05/27/19 16:00 05/28/19 09:46 Habitrol TD 14 mg QDAY [facility] Administration Ondansetron HCl 4 mg 05/26/19 23:31 Zofran IV Q8H PRN Nausea And Vomiting Sodium Chloride 10 ml 05/27/19 10:00 05/28/19 09:48 Sodium Chloride Flush Syringe 10 Ml IV 10 ml BID [facility] Administration Sodium Chloride 10 ml 05/26/19 23:31 05/27/19 02:01 Sodium Chloride Flush Syringe 10 Ml IV 10 ml PRN PRN Administration LINE FLUSH Nutrition/Malnutrition Assess - Dietary Evaluation Nutrition/Malnutrition Findings: Nutrition Notes Start: 05/27/19 14:49 Freq: Status: Active Protocol: Document 05/27/19 14:49 EFRAIN (Rec: 05/27/19 14:52 EFRAIN [email or web address] [email or web address]) Nutrition Notes Need for Assessment generated from: MD Order,Education Initial or Follow up Brief Note Current Diagnosis Diabetes,Hypertension Other Pertinent Diagnosis AMS, UTI Current Diet Cardiac Height 5 ft 5 in Weight 76.6 kg [place] Body Weight (kg) 56.81 BMI 28.0 Weight Status Overweight Subjective/Other Information RD consulted for diet education. Pt from [facility] and requires sitter at bedside. No need for diet education at this time (BG labs 107 and 105 and BP is WNL). Is patient on ventilator? No Is Patient Ambulatory and/or Out of Bed Yes REE-([place]-St. Jeor-ambulatory/OOB) [ 1828.944 NUTR.MSJOOB] Calculation Used for Recommendations [place]-St Jeor Additional Notes Pro needs 0.8-1g/k-77g/ day Fluid needs 1ml/kcal Nutrition Intervention Follow-Up By: 06/01/19 Additional Comments F/U: intakes, wt
[2019-05-28] MEDS: NORVASC PO SCH (13:00)
[2019-05-29] MEDS: NACL 0.9% 1000 ML 1,000 ML IV SCH ×2 (06:02→16:37)
--- NOTE | 2019-05-29 08:06 | Progress Note ---
Assessment and Plan Assessment and plan: Pt is a 48-year-old female with PMHx of HTN, Depression who was brought to the ER from a mental facility for c/o confusion. Patient was admitted at [facility] (psych facility) for depression and suicidal ideations, she was on 1013. Pt was sent to the [facility] ER for confusion and changed in mental status. In the ER, pt had a UA that was positive for UTI. Pt was A&O x 3, she was noted to have some confusion with the time of the day, Past History Past Medical History: diabetes, hypertension, other (depression) CTH neg UA has 33 wbc, UDS neg, other labs wnl SI cont 1013, MH consult UTI cont abx, fup ucx Acute metabolic encephalopathy likely due to UTI, improving dvt ppx- lovenox History Interval history: no agitation, less confused no cp, no vomiting, no sob, no fever, no seizures Hospitalist Physical - Physical exam Narrative exam: General.: Appears well, no distress, nontoxic HEENT: Moist mucous membranes, extraocular muscles intact, no lymphadenopathy Neck: supple Cardiac: S1-S2 heard Lungs: clear to auscultation bilaterally Abdomen: soft , nontender, nondistended, bowel sounds positive Extremities: no edema clubbing or cyanosis Skin: no rash or lesions Neurologic: no gross focal deficits, confused, oriented to person and year, not to place and not to month or day Psych: calm, and cooperative - Constitutional Vitals: Temp Pulse Resp BP Pulse Ox 98.2 F 94 H 16 127/78 99 05/29/19 04:56 05/29/19 04:56 05/29/19 04:56 05/29/19 04:56 05/29/19 04:56 General appearance: Present: no acute distress Results - Labs CBC & Chem 7: 05/27/19 06:37 05/27/19 06:37 Labs: Laboratory Last Values WBC 4.8 K/mm3 (4.5-11.0) 05/27/19 06:37 RBC 3.50 M/mm3 (3.65-5.03) L 05/27/19 06:37 Hgb 11.5 gm/dl (10.1-14.3) 05/27/19 06:37 Hct 34.4 % (30.3-42.9) 05/27/19 06:37 MCV 98 fl (79-97) H 05/27/19 06:37 MCH 33 pg (28-32) H 05/27/19 06:37 MCHC 33 % (30-34) 05/27/19 06:37 RDW 13.6 % (13.2-15.2) 05/27/19 06:37 Plt Count 232 K/mm3 (140-440) 05/27/19 06:37 Lymph % (Auto) 46.2 % (13.4-35.0) H 05/26/19 18:26 [place] % (Auto) 12.2 % (0.0-7.3) H 05/26/19 18:26 Eos % (Auto) 1.8 % (0.0-4.3) 05/26/19 18:26 Baso % (Auto) 1.1 % (0.0-1.8) 05/26/19 18:26 Lymph # 3.0 K/mm3 (1.2-5.4) 05/26/19 18:26 [place] # 0.8 K/mm3 (0.0-0.8) 05/26/19 18:26 Eos # 0.1 K/mm3 (0.0-0.4) 05/26/19 18:26 Baso # 0.1 K/mm3 (0.0-0.1) 05/26/19 18:26 Add Manual Diff Complete 05/27/19 06:37 Total Counted 100 05/27/19 06:37 Seg Neutrophils % [employer] 05/27/19 06:37 Seg Neuts % (Manual) 42.0 % (40.0-70.0) 05/27/19 06:37 1.0 % 05/27/19 06:37 44.0 % (13.4-35.0) H 05/27/19 06:37 Reactive Lymphs % (Man) 0 % 05/27/19 06:37 13.0 % (0.0-7.3) H 05/27/19 06:37 0 % (0.0-4.3) 05/27/19 06:37 0 % (0.0-1.8) 05/27/19 06:37 0 % 05/27/19 06:37 0 % 05/27/19 06:37 0 % 05/27/19 06:37 0 % 05/27/19 06:37 Nucleated RBC % Not Reportable 05/27/19 06:37 Seg Neutrophils # 2.5 K/mm3 (1.8-7.7) 05/26/19 18:26 Seg Neutrophils # Man 2.0 K/mm3 (1.8-7.7) 05/27/19 06:37 Band Neutrophils # 0.0 K/mm3 05/27/19 06:37 2.1 K/mm3 (1.2-5.4) 05/27/19 06:37 Abs React Lymphs (Man) 0.0 K/mm3 05/27/19 06:37 0.6 K/mm3 (0.0-0.8) 05/27/19 06:37 0.0 K/mm3 (0.0-0.4) 05/27/19 06:37 0.0 K/mm3 (0.0-0.1) 05/27/19 06:37 0.0 K/mm3 05/27/19 06:37 0.0 K/mm3 05/27/19 06:37 0.0 K/mm3 05/27/19 06:37 Blast Cells # 0.0 K/mm3 05/27/19 06:37 WBC Morphology Not Reportable 05/27/19 06:37 Hypersegmented Neuts Not Reportable 05/27/19 06:37 Hyposegmented Neuts Not Reportable 05/27/19 06:37 Hypogranular Neuts Not Reportable 05/27/19 06:37 Not Reportable 05/27/19 06:37 Not Reportable 05/27/19 06:37 Not Reportable 05/27/19 06:37 Not Reportable 05/27/19 06:37 Not Reportable 05/27/19 06:37 Not Reportable 05/27/19 06:37 Not Reportable 05/27/19 06:37 Not Reportable 05/27/19 06:37 Plt Clumps, EDTA Not Reportable 05/27/19 06:37 Not Reportable 05/27/19 06:37 Not Reportable 05/27/19 06:37 Not Reportable 05/27/19 06:37 Plt Morphology Comment Not Reportable 05/27/19 06:37 RBC Morphology Not Reportable 05/27/19 06:37 Dimorphic RBCs Not Reportable 05/27/19 06:37 Not Reportable 05/27/19 06:37 Not Reportable 05/27/19 06:37 Not Reportable 05/27/19 06:37 1+ 05/27/19 06:37 Not Reportable 05/27/19 06:37 Not Reportable 05/27/19 06:37 Not Reportable 05/27/19 06:37 Not Reportable 05/27/19 06:37 Not Reportable 05/27/19 06:37 Not Reportable 05/27/19 06:37 Not Reportable 05/27/19 06:37 Not Reportable 05/27/19 06:37 Not Reportable 05/27/19 06:37 Not Reportable 05/27/19 06:37 Not Reportable 05/27/19 06:37 Not Reportable 05/27/19 06:37 Not Reportable 05/27/19 06:37 Not Reportable 05/27/19 06:37 Not Reportable 05/27/19 06:37 Acanthocytes (Spur) Not Reportable 05/27/19 06:37 Rouleaux Not Reportable 05/27/19 06:37 Not Reportable 05/27/19 06:37 Not Reportable 05/27/19 06:37 Not Reportable 05/27/19 06:37 Not Reportable 05/27/19 06:37 Hem Pathologist Commnt No 05/27/19 06:37 Sodium 141 mmol/L (137-145) 05/27/19 06:37 Potassium 3.9 mmol/L (3.6-5.0) D 05/27/19 06:37 Chloride 107.0 mmol/L (98-107) 05/27/19 06:37 Carbon Dioxide 22 mmol/L (22-30) 05/27/19 06:37 16 mmol/L 05/27/19 06:37 BUN 11 mg/dL (7-17) 05/27/19 06:37 0.5 mg/dL (0.7-1.2) L 05/27/19 06:37 Estimated GFR > 60 ml/min 05/27/19 06:37 22 % 05/27/19 06:37 Glucose 105 mg/dL (65-100) H 05/27/19 06:37 POC Glucose 112 (70-105) H 05/28/19 22:45 Calcium 9.0 mg/dL (8.4-10.2) 05/27/19 06:37 0.30 mg/dL (0.1-1.2) 05/26/19 18:26 AST 20 units/L (5-40) 05/26/19 18:26 ALT 15 units/L (7-56) 05/26/19 18:26 72 units/L (35-129) 05/26/19 18:26 37.0 umol/L (25-60) 05/26/19 18:26 44 units/L (30-135) 05/26/19 18:26 6.8 g/dL (6.3-8.2) 05/26/19 18:26 3.8 g/dL (3.9-5) L 05/26/19 18:26 1.3 % 05/26/19 18:26 Yellow (Yellow) 05/26/19 18:46 Slightly-cloudy (Clear) 05/26/19 18:46 6.0 (5.0-7.0) 05/26/19 18:46 Ur Specific [place] 1.020 (1.003-1.030) 05/26/19 18:46 <15 mg/dl mg/dL (Negative) 05/26/19 18:46 Neg mg/dL (Negative) 05/26/19 18:46 Neg mg/dL (Negative) 05/26/19 18:46 Neg (Negative) 05/26/19 18:46 Neg (Negative) 05/26/19 18:46 Neg (Negative) 05/26/19 18:46 < 2.0 mg/dL (<2.0) 05/26/19 18:46 Ur Leukocyte Esterase Lg (Negative) 05/26/19 18:46 33.0 /HPF (0.0-6.0) H 05/26/19 18:46 30.0 /HPF (0.0-6.0) 05/26/19 18:46 U Epithel Cells (Auto) 12.0 /HPF (0-13.0) 05/26/19 18:46 1+ /HPF (Negative) 05/26/19 18:46 Few /HPF 05/26/19 18:46 Salicylates < 0.3 mg/dL (2.8-20.0) L 05/26/19 18:26 Presumptive negative 05/26/19 18:46 Presumptive negative 05/26/19 18:46 Acetaminophen < 5.0 ug/mL (10.0-30.0) L 05/26/19 18:26 Ur Barbiturates Screen Presumptive negative 05/26/19 18:46 Ur Phencyclidine Scrn Presumptive negative 05/26/19 18:46 Ur Amphetamines Screen Presumptive negative 05/26/19 18:46 U Benzodiazepines Scrn Presumptive negative 05/26/19 18:46 Presumptive negative 05/26/19 18:46 U Marijuana (THC) Screen Presumptive negative 05/26/19 18:46 Disclamer 05/26/19 18:46 Plasma/Serum Alcohol < 0.01 % (0-0.07) 05/26/19 18:26 Active Medications - Current Medications Current Medications: Generic Name Dose Route Start Last Admin Trade Name Freq PRN Reason Stop Dose Admin Acetaminophen 650 mg 05/26/19 23:31 Tylenol PO Q4H PRN Pain MILD(1-3)/Fever >100.5/VILA Amlodipine Besylate 5 mg 05/28/19 12:00 05/28/19 13:00 Norvasc PO 5 mg DAILY TERRIE Administration Dextrose 50 ml 05/27/19 01:03 D50w (25gm) Syringe IV PRN PRN Hypoglycemia Enoxaparin Sodium 40 mg 05/27/19 10:00 05/28/19 09:46 Lovenox SUB-Q 40 mg QDAY TERRIE Administration Famotidine 20 mg 05/26/19 23:45 05/28/19 22:59 Pepcid IV 20 mg BID TERRIE Administration Folic Acid 1 mg 05/29/19 10:00 Folvite PO DAILY TERRIE Sodium Chloride 1,000 mls @ 100 mls/hr 05/26/19 23:45 05/29/19 06:02 Nacl 0.9% 1000 Ml IV 100 mls/hr DIRECT TERRIE Administration Ceftriaxone Sodium 1 gm in 50 mls @ 100 mls/hr 05/27/19 10:00 05/28/19 09:45 Rocephin/Ns 1 Gm/50 Ml IV 100 mls/hr Q24HR TERRIE Administration Protocol Insulin Human Lispro 0 unit 05/27/19 07:30 05/28/19 22:59 Humalog SUB-Q Not Given ACHS [facility] Protocol Lorazepam 1 mg 05/27/19 15:58 05/28/19 20:10 Ativan IV 1 mg Q4H PRN Administration Agitation Magnesium Hydroxide 30 ml 05/26/19 23:31 Milk Of Magnesia PO Q4H PRN Constipation Nicotine 14 mg 05/27/19 16:00 05/28/19 09:46 Habitrol TD 14 mg QDAY TERRIE Administration Ondansetron HCl 4 mg 05/26/19 23:31 Zofran IV Q8H PRN Nausea And Vomiting Sodium Chloride 10 ml 05/27/19 10:00 05/28/19 22:59 Sodium Chloride Flush Syringe 10 Ml IV 10 ml BID TERRIE Administration Sodium Chloride 10 ml 05/26/19 23:31 05/27/19 02:01 Sodium Chloride Flush Syringe 10 Ml IV 10 ml PRN PRN Administration LINE FLUSH Nutrition/Malnutrition Assess - Dietary Evaluation Nutrition/Malnutrition Findings: Nutrition Notes Start: 05/27/19 14:49 Freq: Status: Active Protocol: Document 05/27/19 14:49 EFRAIN (Rec: 05/27/19 14:52 EFRAIN [email or web address]) Nutrition Notes Need for Assessment generated from: MD Order,Education Initial or Follow up Brief Note Current Diagnosis Diabetes,Hypertension Other Pertinent Diagnosis AMS, UTI Current Diet Cardiac Height 5 ft 5 in Weight 76.6 kg [place] Body Weight (kg) 56.81 BMI 28.0 Weight Status Overweight Subjective/Other Information RD consulted for diet education. Pt from [facility] and requires sitter at bedside. No need for diet education at this time (BG labs 107 and 105 and BP is WNL). Is patient on ventilator? No Is Patient Ambulatory and/or Out of Bed Yes REE-(Troy-St. Jeor-ambulatory/OOB) [ 1828.944 [id number]] Calculation Used for Recommendations Troy-St Jeor Additional Notes Pro needs 0.8-1g/k-77g/ day Fluid needs 1ml/kcal Nutrition Intervention Follow-Up By: 06/01/19 Additional Comments F/U: intakes, wt
[2019-05-29] MEDS: HumaLOG SUB-Q SCH ×4 (08:44→23:00)
[2019-05-29] MEDS: ROCEPHIN/NS 1 GM/50 ML 1 GM/50 ML BAG IV SCH (09:58)
[2019-05-29] MEDS: HABITROL TD SCH (09:58)
[2019-05-29] MEDS: LOVENOX SUB-Q SCH (09:58)
[2019-05-29] MEDS: SODIUM CHLORIDE FLUSH SYRINGE 10 ML IV SCH ×2 (09:59→23:01)
[2019-05-29] MEDS: PEPCID IV SCH ×2 (09:59→22:57)
[2019-05-29] MEDS: FOLVITE PO SCH (09:59)
[2019-05-29] MEDS: NORVASC PO SCH (10:04)
[2019-05-29] MEDS ORDERED: NORVASC PO SCH (12:52)
[2019-05-29] MEDS: APRESOLINE IV PRN (13:08)
--- NOTE | 2019-05-29 13:36 | Consultation ---
History of Present Illness - Reason for Consult Consult date: 05/29/19 Reason for consult: Mental Health Evaluation Requesting physician: VLAD THOMAS - Chief Complaint Chief complaint: "I don't know how I got here" - History of Present Psychiatric Illness 48-year-old AA female who presented to the ER for confusion. She was a patient at [facility] prior to her ER visit. Psychiatry was consulted to see the patient for behavioral disturbances. Also the patient is on a 1013. Today the patient was calm, but somewhat confused during the assessment. She could not state where she reside nor what hospital she was in prior to coming to the [facility]. She did state that she's from [place], [place] and have family in [place], [place]. She was asked about her mental health, she stated, "I used to drink a lot." Overall, the patient is a poor historian at this time. Medications and Allergies Allergies Allergy/AdvReac Type Severity Reaction Status Date / Time No Known Allergies Allergy Unverified 05/26/19 18:30 Home Medications Medication Instructions Recorded Confirmed Last Taken Type Amlodipine Besylate [Norvasc] 5 mg PO DAILY 05/26/19 05/26/19 Unknown History Folic Acid [Folvite] 1 tab PO DAILY 05/26/19 05/26/19 Unknown History Active Meds: Active Medications Acetaminophen (Tylenol) 650 mg PO Q4H PRN PRN Reason: Pain MILD(1-3)/Fever >100.5/VILA Amlodipine Besylate (Norvasc) 10 mg PO DAILY [facility] Amlodipine Besylate (Norvasc) 5 mg PO ONCE ONE Stop: 05/29/19 14:01 Last Admin: 05/29/19 13:07 Dose: 5 mg Documented by: Dextrose (D50w (25gm) Syringe) 50 ml IV PRN PRN PRN Reason: Hypoglycemia Enoxaparin Sodium (Lovenox) 40 mg SUB-Q QDAY [facility] Last Admin: 05/29/19 09:58 Dose: 40 mg Documented by: Famotidine (Pepcid) 20 mg IV BID [facility] Last Admin: 05/29/19 09:59 Dose: 20 mg Documented by: Folic Acid (Folvite) 1 mg PO DAILY [facility] Last Admin: 05/29/19 09:59 Dose: 1 mg Documented by: Hydralazine HCl (Apresoline) 10 mg IV Q4HR PRN PRN Reason: BP >160/100 Last Admin: 05/29/19 13:08 Dose: 10 mg Documented by: Sodium Chloride (Nacl 0.9% 1000 Ml) 1,000 mls @ 100 mls/hr IV DIRECT TERRIE Last Admin: 05/29/19 06:02 Dose: 100 mls/hr Documented by: Ceftriaxone Sodium (Rocephin/Ns 1 Gm/50 Ml) 1 gm in 50 mls @ 100 mls/hr IV Q24HR [facility]; Protocol Last Admin: 05/29/19 09:58 Dose: 100 mls/hr Documented by: Insulin Human Lispro (Humalog) 0 unit SUB-Q ACHS [facility]; Protocol Last Admin: 05/29/19 13:08 Dose: Not Given Documented by: Lorazepam (Ativan) 1 mg IV Q4H PRN PRN Reason: Agitation Last Admin: 05/28/19 20:10 Dose: 1 mg Documented by: Magnesium Hydroxide (Milk Of Magnesia) 30 ml PO Q4H PRN PRN Reason: Constipation Nicotine (Habitrol) 14 mg TD QDAY [facility] Last Admin: 05/29/19 09:58 Dose: 14 mg Documented by: Ondansetron HCl (Zofran) 4 mg IV Q8H PRN PRN Reason: Nausea And Vomiting Sodium Chloride (Sodium Chloride Flush Syringe 10 Ml) 10 ml IV BID [facility] Last Admin: 05/29/19 09:59 Dose: 10 ml Documented by: Sodium Chloride (Sodium Chloride Flush Syringe 10 Ml) 10 ml IV PRN PRN PRN Reason: LINE FLUSH Last Admin: 05/27/19 02:01 Dose: 10 ml Documented by: Past psychiatric history - Past Medical History Past Medical History: No medical history, other Past Surgical History: No surgical history, Other - past Psychiatric treatment and history psychiatric treatment history: Possible hx of alcohol abuse. Unable to obtain a fam psy hx. - Social History Social history: lives with family Mental Status Exam - Vital signs Last Vital Signs Temp 98.7 F 05/29/19 12:01 Pulse 85 05/29/19 12:01 Resp 20 05/29/19 12:01 BP 163/121 05/29/19 12:01 Pulse Ox 100 05/29/19 12:01 - Exam Narrative exam: MSE: Appearance: calm, cooperative Behavior: regular eye contact Speech: regular rate and tone Mood: "okay" Affect: congruent to mood Thought Process: somewhat circumstantial Thought Content: denies SI/HI's and AVH's Motor Activity: sitting up in bed Cognition: A/O x2 with some confusion Insight: variable Judgment: fair Results Result Diagrams: 05/27/19 06:37 05/27/19 06:37 Abnormal lab results 05/28/19 05/28/19 Range/Units 18:10 22:45 POC Glucose 109 H 112 H (70-105) All other labs normal. Assessment and Plan Assessment and plan: Impression: Hx of possible Alcohol Abuse per the patient. Today the patient was calm, but somewhat confused during the assessment. Recommendation/Plan: Continue 1013 and gather collateral information. Will determine if psy medication is necessary after patient is reassess in 24 hours, the patient maybe less confused. Dispo: Once collateral information is gathered, proper dispo will be determined. Will staff with Dr Paris Bryson.
[2019-05-29] MEDS ORDERED: NORVASC PO ONE (14:00)
[2019-05-29] MEDS: ATIVAN IV PRN (23:00)
[2019-05-30] MEDS: NACL 0.9% 1000 ML 1,000 ML IV SCH ×2 (00:38→18:20)
[2019-05-30] MEDS: HABITROL TD SCH (11:33)
[2019-05-30] MEDS: HumaLOG SUB-Q SCH ×4 (11:33→22:14)
[2019-05-30] MEDS: NORVASC PO SCH (11:34)
[2019-05-30] MEDS: LOVENOX SUB-Q SCH (11:34)
[2019-05-30] MEDS: PEPCID IV SCH ×2 (11:34→21:23)
[2019-05-30] MEDS: ROCEPHIN/NS 1 GM/50 ML 1 GM/50 ML BAG IV SCH (11:34)
[2019-05-30] MEDS: FOLVITE PO SCH (11:35)
[2019-05-30] MEDS: SODIUM CHLORIDE FLUSH SYRINGE 10 ML IV SCH ×2 (11:36→21:23)
--- NOTE | 2019-05-30 13:57 | Progress Note ---
Subjective - Reason for Consult Consult date: 05/30/19 Reason for consult: Psychiatry Follow-up - Chief Complaint Chief complaint: "I want ti get my life together" 48-year-old AA female who presented to the ER for confusion. She was a patient at [facility] prior to her ER visit. Today the patient was calm and cooperative during the assessment. She stated that she want to move back to [place], [place] and be with family once discharged. She stated that she want to get her life on track. She stated that she has a set of twins and a younger daughter. She spoke about her mother and sister who reside in [place], [place] as well. She stated that she plan not to relapse on alcohol (etoh) and recreational drugs. She denies SI/HI's and AVH's. Per notes, the patient have been pleasant throughout her hospital stay. Mental Status Exam - Vital signs Last Vital Signs Temp 98.1 F 05/30/19 11:32 Pulse 91 H 05/30/19 11:34 Resp 16 05/30/19 11:32 BP 140/99 05/30/19 11:34 Pulse Ox 99 05/30/19 11:32 - Exam Narrative exam: MSE: Appearance: calm, cooperative Behavior: regular eye contact Speech: regular rate and tone Mood: "okay" Affect: congruent to mood Thought Process: more organized Thought Content: denies SI/HI's and AVH's Motor Activity: sitting up in bed Cognition: A/O x3 Insight: fair Judgment: fair Assessment and Plan Impression: Hx of Alcohol Abuse/Substance Abuse per the patient. Today the patient was calm and cooperative during the assessment. The patient's mental status has improved. Recommendation/Plan: Rescind 1013. The patient do not meet 1013 criteria. Discussed the importance to abstain from recreation drugs use and alcohol consumption (etoh), she verbalized understanding. Dispo: The patient can follow up with [facility] for outpatient rehab services. Will staff with Dr Paris Bryson.
--- NOTE | 2019-05-30 18:13 | Progress Note ---
Assessment and Plan - Acute metabolic encephalopathy likely due to UTI, improving CT of the head was negative - SI cont 1013, MH consult - UTI cont abx, f/u ucx - dvt ppx- lovenox Subjective Date of service: 05/30/19 Principal diagnosis: metabolic encephalopathy, UTI, suicidal ideation. Interval history: Patient lying quietly in bed. Less agitated. Denies any chest pain, shortness of breath or fever. No seizures. Objective - Exam Narrative Exam: Constitutional: Well-nourished well-developed. In no distress Head: Normocephalic atraumatic Eyes: Pupils are equal round and reactive to light Nose: No enlarged turbinates, no septal deviation. Mouth: Moist mucous membranes. Neck: Supple no thyromegaly. No bruit. No JVD Heart: Regular rate and rhythm, S1-S2 normal. No rubs murmurs or gallop Lungs: Clear to auscultation bilaterally. no rales or rhonchi Abdomen: Soft, nontender. Bowel sound are present. Extremities: No edema, no cyanosis, no clubbing. Neuro: Alert oriented Oriented x3. No focal sensory or motor deficit. Skin: No rashes or hyperpigmented spots Musculoskeletal system: No joint pain or swelling Hematological: No petechia or subcutanous hemorrhages. Immunological: No multiple septic spots on the skin Lymphatic: No generalized lymphadenopathy Psychiatry: Euthymic. Calm. - Constitutional Vitals: Vital Signs - 12hr 05/30/19 05/30/19 11:32 11:34 Temperature 98.1 F Pulse Rate 90 91 H Respiratory 16 Rate Blood Pressure 140/99 140/99 O2 Sat by Pulse 99 Oximetry - Labs CBC & Chem 7: 05/27/19 06:37 05/27/19 06:37 Labs: Abnormal lab results 05/29/19 05/30/19 Range/Units 20:20 11:43 POC Glucose 108 H 123 H (70-105)
[2019-05-31] MEDS: HumaLOG SUB-Q SCH ×4 (07:30→22:06)
[2019-05-31] MEDS: ROCEPHIN/NS 1 GM/50 ML 1 GM/50 ML BAG IV SCH (10:08)
[2019-05-31] MEDS: NORVASC PO SCH (10:09)
[2019-05-31] MEDS: PEPCID IV SCH ×2 (10:09→22:07)
[2019-05-31] MEDS: LOVENOX SUB-Q SCH (10:10)
[2019-05-31] MEDS: FOLVITE PO SCH (10:10)
[2019-05-31] MEDS: HABITROL TD SCH (10:11)
[2019-05-31] MEDS: NACL 0.9% 1000 ML 1,000 ML IV SCH (10:11)
[2019-05-31] MEDS: SODIUM CHLORIDE FLUSH SYRINGE 10 ML IV SCH ×2 (10:12→22:00)
[2019-05-31] MEDS: APRESOLINE IV PRN (18:49)
--- NOTE | 2019-05-31 19:31 | Progress Note ---
Assessment and Plan - Acute metabolic encephalopathy likely due to UTI, improving CT of the head was negative Slightly disoriented. - SI cont 1013, MH consult - UTI cont abx, f/u ucx - dvt ppx- lovenox -Disposition: D/C home in am Subjective Date of service: 05/31/19 Principal diagnosis: metabolic encephalopathy, UTI, suicidal ideation. Interval history: Patient lying quietly in bed. Less agitated. Denies any chest pain, shortness of breath or fever. No seizures. Objective - Exam Narrative Exam: Constitutional: Well-nourished well-developed. In no distress Head: Normocephalic atraumatic Eyes: Pupils are equal round and reactive to light Nose: No enlarged turbinates, no septal deviation. Mouth: Moist mucous membranes. Neck: Supple no thyromegaly. No bruit. No JVD Heart: Regular rate and rhythm, S1-S2 normal. No rubs murmurs or gallop Lungs: Clear to auscultation bilaterally. no rales or rhonchi Abdomen: Soft, nontender. Bowel sound are present. Extremities: No edema, no cyanosis, no clubbing. Neuro: Alert oriented Oriented x3. No focal sensory or motor deficit. Skin: No rashes or hyperpigmented spots Musculoskeletal system: No joint pain or swelling Hematological: No petechia or subcutanous hemorrhages. Immunological: No multiple septic spots on the skin Lymphatic: No generalized lymphadenopathy Psychiatry: Euthymic. Calm. - Constitutional Vitals: Vital Signs - 12hr 05/31/19 05/31/19 05/31/19 10:00 10:09 13:04 Temperature 97.3 F L Pulse Rate 89 Pulse Rate [ 81 Right Radial] Respiratory 20 18 Rate Blood Pressure 134/97 161/105 O2 Sat by Pulse 97 98 Oximetry 05/31/19 05/31/19 17:36 18:49 Temperature 98.7 F Pulse Rate 95 H 93 H Pulse Rate [ Right Radial] Respiratory 93 H Rate Blood Pressure 161/107 161/107 O2 Sat by Pulse 100 Oximetry - Labs CBC & Chem 7: 05/27/19 06:37 05/27/19 06:37 Labs: Abnormal lab results 05/30/19 Range/Units 22:01 POC Glucose 109 H (70-105)
[2019-05-31] MEDS: ATIVAN IV PRN (20:17)
[2019-06-01] MEDS: NACL 0.9% 1000 ML 1,000 ML IV SCH (06:07)
[2019-06-01] MEDS: ROCEPHIN/NS 1 GM/50 ML 1 GM/50 ML BAG IV SCH (09:59)
[2019-06-01] MEDS: PEPCID IV SCH (10:00)
[2019-06-01] MEDS: FOLVITE PO SCH (10:00)
[2019-06-01] MEDS: NORVASC PO SCH (10:00)
[2019-06-01] MEDS: LOVENOX SUB-Q SCH (10:00)
[2019-06-01] MEDS: HABITROL TD SCH (10:00)
[2019-06-01] MEDS: SODIUM CHLORIDE FLUSH SYRINGE 10 ML IV SCH (10:01)
[2019-06-01] MEDS: HumaLOG SUB-Q SCH ×2 (10:01→11:30)
[2019-06-01 13:40] VITALS: BP 127/79
--- NOTE | 2019-06-01 14:56 | Discharge Summary ---
Providers - Providers Date of Admission: 05/26/19 23:01 Date of discharge: 06/01/19 Attending physician: VITO SCHWARTZ 05/27/19 01:03 Consult to Dietitian/Nutrition [CONS] Routine Physician Instructions: Reason For Exam: Reason for Consult: Diet education 05/28/19 12:25 Consult to Mental Health [CONS] Routine Reason For Exam: behavioral disturbance Place consult to:: [facility] Notified:: Phone number called:: [phone] Was contact made?: No Time called:: 13:09 Comment:: no answer [facility] Reason for admission: Acute metabolic encephaliopathy Condition: Good Pertinent studies: CT head Procedures: CT head Hospital course: Pt is a 48-year-old female with PMHx of HTN, Depression who was brought to the ER from a mental facility for c/o confusion. Patient was admitted at [facility] (psych facility) for depression and suicidal ideations, she was on 1013. Pt was sent to the [facility] ER for confusion and changed in mental status. In the ER, pt had a UA that was positive for UTI. Pt was A&O x 3, she was noted to have some confusion with the time of the day, she otherwise able to answer questions appropriately, she denies any back pain, denies dysuria, denies pain in micturation, denies fever, denies chills. A CT scan of the brain was negative for any acute lesions, she was started on antibiotic an admitted for further evaluation and treatment. Pt commenced on iv hydation , iv antibiotic and antiphyschitic med. Mental status improved and pt is being discharged to follow up with PCP and psych in 3-4 days Disposition: DC-01 TO HOME OR SELFCARE Time spent for discharge: 35 mins - Discharge Diagnoses (1) Confusion Status: Acute (2) Encephalopathy acute Status: Acute (3) UTI (urinary tract infection) Status: Acute Qualifiers: Urinary tract infection type: acute cystitis Hematuria presence: with hematuria Qualified Code(s): N30.01 - Acute cystitis with hematuria Core Measure Documentation - Palliative Care Palliative Care/ Comfort Measures: Not Applicable - Core Measures Any of the following diagnoses?: none Exam - Physical Exam Narrative exam: Constitutional: Well-nourished well-developed.In no distress Head: Normocephalic atraumatic Eyes: Pupils are equal round and reactive to light Nose: No enlarged turbinates, no septal deviation. Mouth: Moist mucous membranes. Neck: Supple no thyromegaly. No bruit. No JVD Heart: Regular rate and rhythm, S1-S2 normal. No rubs murmurs or gallop Lungs: Clear to auscultation bilaterally. no rales or rhonchi Abdomen: Soft, nontender. Bowel sound are present. Extremities: No edema, no cyanosis, no clubbing. Neuro: Alert oriented Oriented x3. No focal sensory or motor deficit. Skin: No rashes or hyperpigmented spots Musculoskeletal system: No joint pain or swelling Hematological: No petechia or subcutanous hemorrhages. Immunological: No multiple septic spots on the skin Lymphatic: No generalized lymphadenopathy Psychiatry: Euthymic. Calm. - Constitutional Vitals: Temp Pulse Resp BP Pulse Ox 98.0 F 79 18 127/79 98 06/01/19 11:29 06/01/19 11:29 06/01/19 11:29 06/01/19 11:29 06/01/19 11:29 Plan Activity: fall precautions Weight Bearing Status: Non-Weight Bearing Follow up with: LEATHA SILVER MD [Primary Care Provider] - 3-5 Days Prescriptions: Folic Acid [Folvite] 1 mg PO DAILY #30 tablet amLODIPine [Norvasc] 10 mg PO DAILY #30 tablet
[2019-06-01] MEDS: ATIVAN IV PRN (15:38)
== END 2019-06-01 18:35 | disposition home or self-care (01) | DRG 689 ==
LOC: ED 17:55 → 3A 23:01
PROVIDERS: ADMIT Internal Medicine; ATTEND Family Medicine
DX: N30.01 Acute cystitis with hematuria (principal); G93.41 Metabolic encephalopathy; R45.851 Suicidal ideations; I10 Essential (primary) hypertension; F32.9 Major depressive disorder, single episode, unspecified; E11.9 Type 2 diabetes mellitus without complications; F10.10 Alcohol abuse, uncomplicated; Z79.899 Other long term (current) drug therapy
CPT/HCPCS: 36415; 70450; 80048; 80053; 80307; 80320; 81001; 82140; 82550; 82962; 85007; 85025; 87086; 87116; 93005; 93010; 99406; G0378; G0480; J0360; J0692; J0696; J1650; J1815; J2060; J3486; J7030

== ENCOUNTER 2019-06-02 01:46 | Emergency (ER) | payer SELFPAY ==
[2019-06-02] MEDS ORDERED: ATIVAN PO ONE (02:23)
[2019-06-02 02:36] VITALS: BP 157/104
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
== END 2019-06-02 03:57 | disposition home or self-care (01) ==
LOC: ED 01:46
DX: F41.1 Generalized anxiety disorder (principal); F17.200 Nicotine dependence, unspecified, uncomplicated; E11.9 Type 2 diabetes mellitus without complications
CPT/HCPCS: 93005; 93010

== ENCOUNTER 2019-06-02 08:38 | Emergency (ER) | payer SELFPAY ==
[2019-06-02] MEDS ORDERED: ASPIRIN PO ONE (08:53)
[2019-06-02 09:13] LABS: Basophils # (Auto) 0.1 K/mm3 (0.0-0.1); Basophils % (Auto) 0.8 % (0.0-1.8); Hemoglobin 12.4 gm/dl (10.1-14.3); Lymphocytes # (Auto) 1.6 K/mm3 (1.2-5.4); Lymphocytes % (Auto) 14.3 % (13.4-35.0); Mean Corpuscular HGB Conc 35 % (30-34); Mean Corpuscular Volume 95 fl (79-97); Monocytes # (Auto) 1.3 K/mm3 (0.0-0.8); Monocytes % (Auto) 11.6 % (0.0-7.3); Platelet Count 285 K/mm3 (140-440); Red Cell Distribution Width 13.2 % (13.2-15.2)
[2019-06-02 09:33] LABS: BUN/Creatinine Ratio 18; Blood Urea Nitrogen 18 mg/dL (7-17); Calcium 10.7 mg/dL (8.4-10.2); Hemolysis Index 4
--- NOTE | 2019-06-02 11:00 | XRay Report ---
CHEST 1 VIEW INDICATION / CLINICAL INFORMATION: Chest Pain. COMPARISON: None available. FINDINGS: SUPPORT DEVICES: None. HEART / MEDIASTINUM: No significant abnormality. LUNGS / PLEURA: No significant pulmonary or pleural abnormality.. No pneumothorax. ADDITIONAL FINDINGS: No significant additional findings. IMPRESSION: 1. No acute findings. Signer Name: Erik Gregg MD Signed: 06/02/2019 10:56 AM Workstation Name: [id number]
[2019-06-02] MEDS ORDERED: GEODON IM ONE (11:14)
[2019-06-02] MEDS ORDERED: WATER FOR INJ Sterile (PF) 10 ML ONE (11:23)
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
[2019-06-02] MEDS ORDERED: ATIVAN IV ONE (12:00)
[2019-06-02] MEDS ORDERED: NACL 0.9% 1000 ML 1,000 ML IV ONE (12:00)
[2019-06-02 12:43] LABS: Bacteria,Urine 1+ /HPF (Negative); Bilirubin,Urine NEG (Negative); Blood,Urine SM (Negative); Color,Urine Yellow (Yellow); Mucus,Urine 1+ /HPF; Protein,Urine <15 mg/dL mg/dL (Negative); Urobilinogen,Urine < 2.0 mg/dL (<2.0)
[2019-06-02 12:50] LABS: Amphetamine Screen,Urine PRESUMPTIVE NEGATIVE; Benzodiazepines Screen,Urine PRESUMPTIVE NEGATIVE; Cannabinoid Screen,Urine PRESUMPTIVE NEGATIVE; Cocaine Screen,Urine PRESUMPTIVE NEGATIVE; Methadone Screen,Urine PRESUMPTIVE NEGATIVE; Opiate Screen,Urine PRESUMPTIVE NEGATIVE
[2019-06-02 13:11] LABS: INR 1.11 (0.87-1.13)
[2019-06-02] MEDS ORDERED: ATIVAN ONE (14:08)
[2019-06-02] MEDS ORDERED: ROCEPHIN/NS 1 GM/50 ML 1 GM/50 ML BAG IV ONE (14:35)
[2019-06-02] MEDS ORDERED: D5NS 1,000 ML IV SCH (15:00)
[2019-06-02] MEDS ORDERED: MAGNESIUM SULFATE 1 GM in NACL 0.9% 50 ML IV ONE (15:17)
[2019-06-02] MEDS ORDERED: VITAMIN B-1 100 MG in NACL 0.9% 50 ML IV ONE (15:17)
[2019-06-02 16:41] LABS: Free T4 (Free Thyroxine) 1.49 ng/dL (0.76-1.46)
--- NOTE | 2019-06-02 18:45 | Cat Scan Report ---
CTA CHEST WITH IV CONTRAST INDICATION: tachycardia, elevated ddimer. TECHNIQUE: Axial CT images were obtained through the chest after injection of 100 cc Omnipaque 350 IV contrast. 3 plane MIP reconstructions were produced. All CT scans at this location are performed using CT dose reduction for ALARA by means of automated exposure control. COMPARISON: None available. FINDINGS: Contrast opacification of pulmonary arteries is good. Exam is limited secondary to respirat ory motion artifact PULMONARY ARTERIES: No pulmonary emboli. THORACIC AORTA: No acute abnormality. HEART: Enlarged CORONARY ARTERIES: No significant calcification. PLEURA: No pleural effusion. No pneumothorax. LYMPH NODES: No significant adenopathy. LUNGS: Bilateral linear atelectasis and scattered subpleural groundglass parenchymal densities possib ly representing mild edema or early inflammatory interstitial disease with active alveolitis ADDITIONAL FINDINGS: None. UPPER ABDOMEN: Calcified gallstone SKELETAL STRUCTURES: No significant osseous abnormality. IMPRESSION: 1. No CT evidence for pulmonary embolism. 2. Possible bilateral subpleural active alveolitis from interstitial disease versus atypical pulmonar y edema. Clinical correlation and follow-up HRCT is recommended in a few weeks. 3. Cholelithiasis 4. Cardiomegaly Signer Name: Long Coffman MD Signed: 06/02/2019 6:40 PM Workstation Name: [id number]
--- NOTE | 2019-06-02 20:08 | Event Note ---
Date: 06/02/19 48 YO Female with Anxiety, DM, HTN being evaluated in ED for Psychosis. Pt seen and evaluated and found to have incidental finding of Alveolitis on CT of chest. Pt has pulse oximetry of 98%-100% on room air. Pt resting comfortably in bed and is without respiratory distress. Recommend steroid taper and outpatient F/U with PCP. continue current care. Pt is medically optimized and cleared for discharge. General: resting, cooperative. Head: Atraumatic Eyes: Normal appearance, Pupils equal and reactive to light, extraocular mov ements intact ENT: Normal oropharynx Neck: Normal appearance, no posterior or midline tenderness, no meningismus Chest: Clear to auscultation bilaterally, no wheezes, rales, or crackles CV: Tachycardic regular rhythm Abdomen: soft, normal bowel sounds, nontender, nondistended, no rebound or guarding Back: Nontender Extremity: Normal inspection, full range of motion, nontender Neuro: Alert and oriented 2, speech clear, no gross motor or sensory deficit Neck: Anxious, agitated Skin: No rash, redness, warmth
[2019-06-02] MEDS ORDERED: ZITHROMAX 500 MG in NACL 0.9% 250ML 250 ML IV ONE (20:12)
[2019-06-02] MEDS ORDERED: SOLU-Medrol IV ONE (20:38)
[2019-06-03] MEDS ORDERED: FOLVITE 1 MG in NACL 0.9% 50 ML IV ONE (14:18)
--- NOTE | 2019-06-03 18:11 | Emergency Department Report ---
Blank Doc - Documentation Documentation: Patient was seen and evaluated by hospitalist yesterday for possible admission. Hospitalist did not feel like patient required admission and recommended steroids and antibiotics for a alveolitis since oxygen saturation was normal. ENT is also negative. Patient is medically cleared for inpatient psychiatric admission And is currently on a 1013. I wrote to continue Macrobid for UTI, azithromycin for alveolitis, and prednisone daily. Mental health informed for evaluation in consult
[2019-06-03] MEDS: ZITHROMAX PO SCH (19:35)
[2019-06-03] MEDS: DELTASONE PO SCH (19:35)
[2019-06-03] MEDS: MACROBID PO SCH (22:00)
[2019-06-04] MEDS: ZITHROMAX PO SCH (10:16)
[2019-06-04] MEDS: MACROBID PO SCH ×2 (10:16→22:06)
[2019-06-04] MEDS: DELTASONE PO SCH (10:16)
--- NOTE | 2019-06-04 15:16 | Consultation ---
History of Present Illness - Reason for Consult Consult date: 06/04/19 Reason for consult: Mental Health Evaluation Requesting physician: MARIAM DAVIS - Chief Complaint Chief complaint: 'What are you talking about" - History of Present Psychiatric Illness 48 y.o. AA female who presented to the ER for bizarre behavior. Per the record, the patient was seen twice in 24 hours. This patient is known to me. Today the patient was confused during the assessment. She could not answer any questions asked of her. She could only name part of her address reference her residence. Per the record, the patient presented with psychotic symptoms on her second visit to the ER on 06/02/2019. Overall, the patient is not a good historian. No gestures of SI/HI's. Medications and Allergies Allergies Allergy/AdvReac Type Severity Reaction Status Date / Time No Known Allergies Allergy Verified 06/02/19 08:44 Home Medications Medication Instructions Recorded Confirmed Last Taken Type Folic Acid [Folvite] 1 mg PO DAILY #30 tablet 06/01/19 Unknown Rx amLODIPine [Norvasc] 10 mg PO DAILY #30 tablet 06/01/19 Unknown Rx Prednisone [predniSONE 10 mg 10 mg PO .TAPER #1 tab.ds.pk 06/02/19 Unknown Rx (6-Day Pack, 21 Tabs)] Active Meds: Active Medications Azithromycin (Zithromax) 250 mg PO DAILY [facility] Stop: 06/06/19 10:01 Last Admin: 06/04/19 10:16 Dose: 250 mg Documented by: Dextrose/Sodium Chloride (D5ns) 1,000 mls @ 250 mls/hr IV DIRECT TERRIE Nitrofurantoin Macrocrystals (Macrobid) 100 mg PO BID TERRIE Stop: 06/09/19 21:59 Last Admin: 06/04/19 10:16 Dose: 100 mg Documented by: Prednisone (Deltasone) 40 mg PO DAILY TERRIE Stop: 06/06/19 10:01 Last Admin: 06/04/19 10:16 Dose: 40 mg Documented by: Past psychiatric history - Past Medical History Past Medical History: diabetes Past Surgical History: Other - past Psychiatric treatment and history psychiatric treatment history: Hx of Substance and Alcohol abuse. Unable to obtain a fam psy hx. - Social History Social history: other (Homeless) Mental Status Exam - Vital signs Last Vital Signs Temp 98.3 F 06/04/19 08:00 Pulse 98 H 06/04/19 08:00 Resp 12 06/04/19 08:00 BP 140/98 06/04/19 08:00 Pulse Ox 98 06/04/19 08:00 - Exam Narrative exam: MSE: Appearance: calm Behavior: regular eye contact Speech: regular rate and tone Mood: "okay" Affect: flat Thought Process:confused Thought Content: unable to assess Motor Activity: sitting up in bed Cognition: alert x 2 Insight: unable to assess Judgment: unable to assess Results Result Diagrams: 06/02/19 09:02 06/02/19 09:02 All other labs normal. Assessment and Plan Assessment and plan: Impression: Hx of Alcohol/Substance Abuse. Today the patient was calm, but confused during the assessment. Recommendation/Plan: Continue 1013 and reassess the patient in 24 hours. Dispo: The patient was referred to inpatient psy services. Staffed with Dr Paris Bryson.
[2019-06-05] MEDS: MACROBID PO SCH ×2 (10:48→22:02)
[2019-06-05] MEDS: DELTASONE PO SCH (10:48)
[2019-06-05] MEDS: ZITHROMAX PO SCH (10:48)
--- NOTE | 2019-06-05 13:25 | Progress Note ---
Subjective - Reason for Consult Consult date: 06/05/19 Reason for consult: Psychiatry Follow-up - Chief Complaint Chief complaint: "Where am I" 48 y.o. AA female who presented to the ER for bizarre behavior. Per the record, the patient was seen twice in 24 hours. This patient is known to me. Today the patient was still somewhat confused during the assessment. Per collateral information from the patient's daughter Kojo Kaplan at [phone], she stated that her mother has a long hx of alcohol abuse (20 plus years). She stated that her mother have been declining since February 2019. She stated that her mother have been missing for a month from [place], [place] after being discharged from a hospital in that area. She stated that she isn't aware how her mother got to [place], [place] prior to her arrival to [place] 05/24/2019. She stated that the patient's confusion have gotten worse. She denies that her mother had a hx of mental health other alcohol addiction. The patient denies SI/HI's. The patient's family is willing to pick the patient up if discharged from the ER. Mental Status Exam - Vital signs Last Vital Signs Temp 98.5 F 06/05/19 07:00 Pulse 79 06/05/19 07:00 Resp 18 06/05/19 07:00 BP 108/76 06/05/19 07:00 Pulse Ox 100 06/05/19 07:00 - Exam Narrative exam: MSE: Appearance: calm, cooperative Behavior: regular eye contact Speech: regular rate and tone Mood: "okay" Affect: flat Thought Process: somewhat confused Thought Content: denies Si/HI's and AVH's Motor Activity: sitting up in bed Cognition: alert x 2 Insight: limited Judgment: unable to assess Assessment and Plan Impression: Hx of Alcohol/ Substance Abuse. Today the patient was calm, but still somewhat confused during the assessment. DDx: R/O Wenicke Korsakoff Syndrome Recommendation/Plan: Reevaluate the patient's 1013 in 24 hours. Discussed with ER Physician the collateral information that was obtained. The patient will be admin a banana bag (vitamins, folate acid, and thiamine). Discussed important factors if the patient return home with her daughter Kojo Kaplan (keeping the house alcohol free and the ability by their family to take care her mother), she verbalized understanding. Dispo: If the patient's 1013 is rescinded, the patient's family will be given literature about support groups in their local area. Staffed with Dr Paris Bryson.
[2019-06-05] MEDS ORDERED: VITAMIN B-1 100 MG, FOLVITE 1 MG, INFUVITE 10 ML in NACL 0.9% 1000 ML 1,000 ML IV ONE (14:13)
[2019-06-05 15:09] LABS: Free T4 (Free Thyroxine) 1.09 ng/dL (0.76-1.46)
[2019-06-05] MEDS ORDERED: NORVASC PO ONE (20:34)
[2019-06-06] MEDS: MACROBID PO SCH ×2 (10:40→22:25)
[2019-06-06] MEDS: ZITHROMAX PO SCH (10:40)
[2019-06-06] MEDS: DELTASONE PO SCH (10:40)
--- NOTE | 2019-06-06 14:23 | Progress Note ---
Subjective - Reason for Consult Consult date: 06/06/19 Reason for consult: Psychiatry Follow-up - Chief Complaint Chief complaint: "Hello" 48 y.o. AA female who presented to the ER for bizarre behavior. Per the record, the patient was seen twice in 24 hours. This patient is known to me. Today the patient was calm during the assessment. She was engaging and answered questions as best as she can reference her family. She was able to state her mother and kid's names when asked. I spoke with the patient's daughter Kojo Kaplan at [phone], she stated that she will pick her mother up when discharged. The patient denies SI/HI's and AVH's. The patient have been pleasant since her arrival to the ER. Mental Status Exam - Vital signs Last Vital Signs Temp 98.6 F 06/06/19 10:41 Pulse 89 06/06/19 10:41 Resp 16 06/06/19 10:41 BP 132/70 06/06/19 10:41 Pulse Ox 100 06/06/19 10:41 - Exam Narrative exam: MSE: Appearance: calm, cooperative Behavior: regular eye contact Speech: regular rate and tone Mood: "okay" Affect: congruent to mood Thought Process: somewhat confused Thought Content: denies Si/HI's and AVH's Motor Activity: sitting up in bed Cognition: A/O x 2 with slight confusion Insight: variable Judgment: variable to fair Assessment and Plan Impression: Hx of Alcohol/ Substance Abuse. Today the patient was calm, but still somewhat confused during the assessment. DDx: R/O Wenicke Korsakoff Syndrome Recommendation/Plan: Rescind 1013. Discussed important factors if the patient return home with her daughter Kojo Kaplan (keeping their home free of alcohol (etoh), she verbalized understanding. Dispo: The patient can follow up with her PCP or neurologist when discharged, her daughter verbalized understanding. Will staff with Dr Paris Bryson.
[2019-06-07] MEDS: MACROBID PO SCH ×2 (09:45→21:47)
--- NOTE | 2019-06-07 13:20 | Emergency Department Report ---
Blank Doc - Documentation Documentation: Patient is a 48-year-old female that originally presented to the emergency room for mental evaluation and psychiatric symptoms. Patient was placed on a 1013. Patient has been medically cleared by the original ER doctor and hospitalist. Psychiatrically cleared by psychiatry and psych recommends rescinding the 1013. 1013 has been rescinded. Patient is stable for discharge. Patient will be given antibiotics for UTI. Patient will be discharged to the care of her family and social workers are brought on board for discharge planning.
[2019-06-07 19:53] VITALS: BP 117/67
== END 2019-06-07 23:10 | disposition home or self-care (01) ==
LOC: ED 08:38 → EEVIPCON 08:38 → ED 06-07 23:10
DX: F41.9 Anxiety disorder, unspecified (principal); F22 Delusional disorders; N39.0 Urinary tract infection, site not specified; F15.10 Other stimulant abuse, uncomplicated
CPT/HCPCS: 36415; 71045; 71275; 80048; 80307; 81001; 82607; 83735; 83880; 84439; 84443; 84484; 84703; 85025; 85379; 85610; 87086; 93005; 93010; 96365; 96367; 96372; 96375; 99285; J0456; J0696; J2060; J2920; J3411; J3475; J3486; J7030; J7050; J7512; Q9967; 80320; G0480